=== PATIENT | male | born 1935 ===

== ENCOUNTER 2024-11-10 16:26 | Inpatient (IN) | payer MEDICARE ==
[~2024-11-10] VITALS: Ht 185.4 cm; Wt 66.5 kg
[2024-11-11] VITALS (34 sets, daily range): BP systolic 119–153; BP diastolic 37–92; PULSE 77–95; RESP 12–32; O2SAT 85–96
[2024-11-11 00:26] LABS: ABG BASE EXCESS -3.4 mmol/L (-2.0-3.0); ABG HCO3 20.1 mmol/L (21.0-28.0); ABG OXYGEN SATURATION 85.0 % (94.0-98.0); ABG PCO2 (T) 30.3 mmHg (35.0-48.0); ABG PH (T) 7.437 (7.350-7.450); ABG PO2 (T) 50.1 mmHg (83.0-108.0); ALLEN'S TEST Modified; FCOHb 0.3 % (0.5-1.5); FHHb 14.9 % (0.0-5.0); FIO2 100.0 mmHg/%; FLOW 30 L/min; FMetHb 0.3 % (0.0-1.5); FO2Hb 84.5 % (94.0-98.0); MODE HIGH FLOW; PATIENT TEMPERATURE 36.2; TOTAL HEMOGLOBIN 11.0 G/dl (13.5-17.5)
--- NOTE | 2024-11-11 01:08 | CONSULTATION REPORT ---
Consult Providers to CC CC: NAYAN REYES MD 89 M who was transferred from [facility]. He has a Right Lung white out and is here for CT surgery to do a VATS for him History of Present Illness Reason for Admit\Complaint: Right Chest White Out on Xray History of Present Illness 89 yr old man we saw in the ICU at [facility]. He was moved here from [facility]. He is in Respiratory Failure Requiring HFNC 35-40L 100%. He is not in a ;lot of respiratory distress but he is emaciated. He is said to have initially been admitted to the [facility] on the 09 of November While there he had a CTA that showed findings suggestive of empyema and right pleural effusion He had a high D Dimer and an 11mm nodule found as well. He did develop new onset Afib there as well and was treated with Diltiazem. He had an echocardiogram and this showed a preserved Ejection Fraction up to 75% He eventually went into Sinus rhythm and Diltiazem was discontinued. He is presently on antibiotics with Meropenem - he also received azithro and rocephin I spoke with the poatient myself via the video system and he said he felt OK and was not in any pain. Not had a BM as constipated for about 5 days. He has a long hx of smoking 1.5ppd for >70 years. He tells me he has been healthy and not been in the hospital since his teenage years. At the time I saw him his HR was 88 sinus rythm, BP was 149/77mmHg, O2 sat was 88-90%. He was coughing as well. Allergies: Coded Allergies: Penicillins (Verified Allergy, Unknown, 11/11/24) Past Medical History Past Medical History Laboratory Tests Test Completed Orders - NAYAN REYES MD Electrocardiogram (11/11/24 08:00) * Rt Notification Q1H (11/11/24 01:18) Cbc/Diff (11/11/24 03:00) CMP (11/11/24 03:00) MG (11/11/24 03:00) PHOS (11/11/24 03:00) Pt Inr (11/11/24 01:06) PTT (11/11/24 01:06) Procalcitonin (11/11/24 01:06) Electrocardiogram (11/11/24 01:06) Chest,Single View (11/11/24 01:06) TSH (11/11/24 01:06) LA (11/11/24 01:06) Type And Screen (11/11/24 01:06) Perflutren Protein-A Microsphr (Optison (11/11/24 01:10) * Rt Notification Q1H (11/11/24 01:06) * Rt Notification Q1H (11/11/24 01:57) Vancomycin*Pharmacy To Dose* (Vancomycin (11/11/24 02:00) Meropenem 1gm/Nacl 50ml Ivpb (Meropenem- (11/11/24 03:00) Vancomycin 1,500mg Inj. (Vancomycin 1,50 (11/11/24 03:05) Ua W/Microscopic, Cult If Ind (11/11/24 05:15) Aspirin 325mg Tablet (Aspirin 325mg Tabl (11/11/24 07:34) 11/11/24 00:22 11/11/24 04:33 11/11/24 05:15 11/11/24 07:47 Blood Gas Specimen Type Arterial Blood Gas Puncture Site Rr O2 Saturation 85.0 % (94.0-98.0) Arterial Blood pH (Temp corrected) 7.437 (7.350-7.450) Arterial Blood pCO2 (Temp correct) 30.3 mmHg (35.0-48.0) Arterial Blood pO2 (Temp corrected) 50.1 mmHg (83.0-108.0) Arterial Blood PO2/FiO2 Ratio 0.53 mmHg/% Arterial Blood HCO3 20.1 mmol/L (21.0-28.0) Arterial Blood Base Excess -3.4 mmol/L (-2.0-3.0) Arterial Blood Oxyhemoglobin 84.5 % (94.0-98.0) Arterial Blood Carboxyhemoglobin 0.3 % (0.5-1.5) Arterial Blood Methemoglobin 0.3 % (0.0-1.5) Arterial Blood Deoxyhemoglobin 14.9 % (0.0-5.0) Shane Test Modified Blood Gas Hemoglobin 11.0 G/dl (13.5-17.5) Blood Gas Temperature 36.2 Blood Gas Liter Flow 30 L/min Blood Gas Modality High flow FiO2 100.0 mmHg/% Blood Gas Critical Value Called To Beto rn White Blood Count 19.9 X10'3 (4.5-11.0) Red Blood Count 3.77 X10'6 (4.70-6.10) Hemoglobin 10.8 g/dl (14.0-17.9) Hematocrit 34.0 % (42.0-52.0) Mean Corpuscular Volume 90.4 FL (78-98) Mean Corpuscular Hemoglobin 28.7 PG (27.0-31.0) Mean Corpuscular Hemoglobin Concent 31.7 g/dL (33.0-36.5) Red Cell Distribution Width 17.4 % (11.5-14.5) Platelet Count 245 X10'3 (140-440) Mean Platelet Volume 8.1 FL (7.4-10.4) Neutrophils (%) (Auto) 91.0 % (42-75) Lymphocytes (%) (Auto) 1.4 % (21-51) Monocytes (%) (Auto) 7.1 % (2-12) Eosinophils (%) (Auto) 0 % (0-6) Basophils (%) (Auto) 0.5 % (0-1) Neutrophils # (Auto) 18.1 X10'3 (1.8-7.7) Lymphocytes # (Auto) 0.3 X10'3 (1.1-4.8) Monocytes # (Auto) 1.4 X10'3 (0-0.9) Eosinophils # (Auto) 0.0 X10'3 (0-0.9) Basophils # (Auto) 0.1 X10'3 (0-0.2) CBC Comment Prothrombin Time 11.4 SECONDS (9.0-12.0) INR International Normalized Ratio 1.1 INR Activated Partial Thromboplast Time 40 SECONDS (22-32) Coagulation Comments Sodium Level 141 MMOL/L (135-145) Potassium Level 4.1 MMOL/L (3.5-5.1) Chloride Level 105 MMOL/L (99-107) Carbon Dioxide Level 24.3 MMOL/L (24-32) Anion Gap 12 (8-16) Blood Urea Nitrogen 27 MG/DL (7-18) Creatinine 0.45 MG/DL (0.60-1.10) Estimated GFR/1.73 m2 > 90 ML/MIN BUN/Creatinine Ratio 60.0 (10.0-20.0) Glucose Level 84 MG/DL (70-104) Lactic Acid Level 0.8 MMOL/L (0.4-2.0) Calcium Level 8.7 MG/DL (8.5-10.1) Phosphorus Level 2.6 MG/DL (2.3-4.5) Magnesium Level 2.2 MG/DL (1.5-2.4) Total Bilirubin 0.5 MG/DL (0.1-1.0) Aspartate Amino Transf (AST/SGOT) 25 U/L (10-37) Alanine Aminotransferase (ALT/SGPT) 26 U/L (12-78) Alkaline Phosphatase 66 IU/L (46-116) Total Protein 5.9 G/DL (6.4-8.2) Albumin 2.0 G/DL (3.4-5.0) Globulin 3.9 G/DL (2.7-4.3) Albumin/Globulin Ratio 0.5 (1.1-1.5) Procalcitonin 1.69 NG/ML (0-0.5) Thyroid Stimulating Hormone (TSH) 0.62 ulU/ml (0.34-4.50) Chemistry Comments Urine Specimen Description Non-specified Urine Color Dark yellow (Yellow) Urine Clarity Clear (Clear) Urine pH 6.0 (4.8-8.0) Urine Specific Marissa 1.025 (1.001-1.035) Urine Protein Trace mg/dl (Neg) Urine Glucose (UA) Negative mg/dl (Neg) Urine Ketones >=80 mg/dl (Neg) Urine Occult Blood Small (Neg) Urine Nitrite Negative (Neg) Urine Bilirubin Small (Neg) Urine Urobilinogen 0.2 E.U/dL (0.2-1.0) Urine Leukocyte Esterase Negative (Neg) Urine RBC 0-2 /HPF (0-2) Urine WBC 5-10 /HPF (0-4) Urine WBC Clumps Few /HPF (NEGATIVE) Urine Squamous Epithelial Cells None seen /LPF (FEW) Urine Bacteria Few /HPF (Neg) Urine Mucus Few /LPF (Neg) Urine Culture Indicated Indicated Volume Urine Centrifuged 10 ml Urine Comment Glucometer 91 mg/dl (70-104) Exam Vitals: Vital Signs Date Time Temp Pulse Resp B/P (MAP) Pulse Ox O2 Delivery O2 Flow Rate FiO2 11/11/24 00:41 97.2 84 25 147/81 (103) 92 High Flow Nasal Cannula 40.0 100 Diagnostic Data Diagnostic Data: Patient: UBALDO LEÓN Medical Record: [id number] [facility] : 1935, Age: 89 Sex: Male Location: [facility] 2S Patient Status: ADM IN Service Date/Time: 11/11/246 Ordering Physician: NAYAN REYES MD Exam: CHEST,SINGLE VIEW CHEST RADIOGRAPH Indication: respiratory failure Technique: Single frontal view of the chest was obtained COMPARISON: XR CHEST 1 VIEW on DOS: 11/09/24 FINDINGS: Diffuse opacification of the right hemithorax presumably related to a large pleural fusion with associated atelectatic changes. No mediastinal shift. Left lung is clear cardiac silhouette is within normal limits. IMPRESSION: 1. Diffuse opacification of the right lung presumably related to an enlarging pleural effusion and progressive atelectasis. Electronically Signed by:GARIMA ROBERTS MD Date & Time: 11/11/24157 Dictated by: GARIMA ROBERTS MD Dictation date and time: 11/11/24157 Primary Care Provider: NO PRIMARY CARE PROVIDER cc: NAYAN REYES MD ~ Additional Plan 89 yr old man with a hx of smoking who is in Acute Respiratory Failure - this is from the Empyema/Pleural Effusion in the right chest May also have underlying COPD given history of smoking Developed Afib bit now in sinus rhythm I have reviewed EKG and it showed a right bundle branch block - widened QRS Non sustained Vtach also being reported Plan - Continue HFNC ---titrate for pt comfort and for goal sats >90% - Continue Meropenem and Vancomycin and broad spectrum antimicrobial in the setting of possible empyema - ASA 325 given and Cardiology consulted given arrhythmias and hx of Afib in the outside hospital. I have spoken to Dr Devendra Triplett - We will continue to monitor vital signs and metal status at this time - Monitor in the ICU - Discussed case with CT surgery Date of Service: Nov 11, 2024 Billing Provider: NAYAN REYES MD Common Visit Codes: 74806-EMQEJROC CARE 30-74 MIN NAYAN REYES MD Nov 11, 2024 01:08
[2024-11-11] MEDS ORDERED: magnesium sulf-water 4G/100mL 100 ML IV PRN ×2 (01:10)
[2024-11-11] MEDS ORDERED: ondansetron/PF 4mg/2ml inj IV PRN (01:10)
[2024-11-11] MEDS: PERFLUTREN PROTEIN-A MICROSPHR (Optison) 0.22 MG/ML 3ML VIAL IV ONE (01:10)
[2024-11-11] MEDS ORDERED: potassium Cl 40MEQ/1/2NS 520ml 520 ML IV PRN (01:10)
[2024-11-11] MEDS ORDERED: potassium Cl 20 mEq SR tablet PO PRN ×2 (01:10)
[2024-11-11] MEDS ORDERED: ipratropium/albuterol 3ml nebule NEB PRN ×2 (01:10→02:00)
[2024-11-11] MEDS ORDERED: magnesium sulf-water 2g/50mL 50 ML IV PRN ×2 (01:10)
[2024-11-11] MEDS ORDERED: guaiFENesin 200 MG/10 ML oral syrup UD cup PO PRN (02:00)
--- NOTE | 2024-11-11 02:00 | RADIOLOGY REPORT ---
CHEST RADIOGRAPH Indication: respiratory failure Technique: Single frontal view of the chest was obtained COMPARISON: XR CHEST 1 VIEW on DOS: 11/09/24 FINDINGS: Diffuse opacification of the right hemithorax presumably related to a large pleural fusion with associated atelectatic changes. No mediastinal shift. Left lung is clear cardiac silhouette is within normal limits. IMPRESSION: 1. Diffuse opacification of the right lung presumably related to an enlarging pleural effusion and progressive atelectasis.
[2024-11-11] MEDS: MEROPENEM 1GM/NACL 50ML IVPB 50 ML IV ONE (03:00)
[2024-11-11] MEDS: VANCOMYCIN 1,500MG in normal saline IV soln 300 ML IV ONE (03:05)
--- NOTE | 2024-11-11 03:49 | ELECTROCARDIOGRAPH REPORT ---
[facility] Test Date: 2024-11-11 Test Time: 03:48:28 Pat Name: UBALDO LEÓN Department: [facility] 2S Patient ID: [facility]-[id number] Room: [facility] 2007 A Gender: M Home [employer] Specialist: : 1935 Requested By: NAYAN REYES Order Number: [id number] Reading MD: Dr. LIDNA Deleon Measurements Intervals [place] Rate: 90 P: 55 [place]: 159 QRS: -71 QRSD: 144 T: 69 QT: 411 QTc: 503 Interpretive Statements Sinus rhythm Ventricular premature complex Left atrial enlargement RBBB and LAFB Electronically Signed On 11-11-2024 12:04:[address] LINDA Deleon Please click the below link to view image of tracing.
[2024-11-11 05:42] LABS: APTT 40 SECONDS (22-32); INR 1.1 INR
[2024-11-11 05:59] LABS: LEUKOCYTE ESTERASE ,URINE NEGATIVE (Neg); NITRITES, URINE NEGATIVE (Neg); OCCULT BLOOD,URINE SMALL (Neg)
[2024-11-11 06:00] LABS: UA COLLECTION TYPE NON-SPECIFIED
[2024-11-11 06:00] LABS: MEAN PLATELET VOLUME 8.1 FL (7.4-10.4); RED CELL DISTRIBUTION WIDTH 17.4 % (11.5-14.5)
[2024-11-11 06:03] LABS: CREATININE 0.45 MG/DL (0.60-1.10); PHOSPHORUS 2.6 MG/DL (2.3-4.5); TOTAL CARBON DIOXIDE 24.3 MMOL/L (24-32); eCRCL 103 ML/MIN; eGFR > 90 ML/MIN
[2024-11-11 06:19] LABS: MUCUS STRANDS FEW /LPF (Neg); SQUAMOUS EPITHELIAL CELL,UR NONE SEEN /LPF (FEW); WBC CLUMPS,URINE FEW /HPF (NEGATIVE)
--- NOTE | 2024-11-11 07:04 | ELECTROCARDIOGRAPH REPORT ---
[facility] Test Date: 2024-11-11 Test Time: 07:02:48 Pat Name: UBALDO LEÓN Department: [facility] 2S Patient ID: [facility]-[id number] Room: [facility] 2007 A Gender: M Phys Ther: : 1935 Requested By: NAYAN REYES Order Number: [id number] Reading MD: Dr. LINDA Deleon Measurements Intervals [place] Rate: 89 P: 59 [place]: 156 QRS: -74 QRSD: 168 T: 71 QT: 411 QTc: 501 Interpretive Statements Sinus rhythm Multiple ventricular premature complexes Probable left atrial enlargement RBBB and LAFB Electronically Signed On 11-11-2024 12:04:[address] LIDNA Deleon Please click the below link to view image of tracing.
[2024-11-11] MEDS: docusate sod 100mg capsule PO SCH (07:54)
[2024-11-11] MEDS: diltiazem SR 60mg capsule (twice daily) PO SCH (07:54)
[2024-11-11] MEDS: enoxaparin 40mg/0.4ml syringe SUBCUT SCH (07:55)
[2024-11-11] MEDS: VANCOMYCIN/WATER FOR INJ (PEG) 1.5GM/300 ML IVPB IV ONE (07:55)
[2024-11-11] MEDS: nicotine 21mg patch - 24 hr TD SCH (08:00)
[2024-11-11] MEDS: K and/or MAG REPLACEMENT MC SCH (08:00)
[2024-11-11] MEDS: MEROPENEM 1GM/NACL 50ML IVPB 50 ML IV SCH (08:25)
[2024-11-11 09:28] LABS: PHOSPHORUS 2.5 MG/DL (2.3-4.5)
[2024-11-11] MEDS ORDERED: OXYC1TAB15 PO (10:47)
[2024-11-11] MEDS ORDERED: FURO20TA4 PO (10:47)
[2024-11-11] MEDS ORDERED: POT (10:47)
[2024-11-11] MEDS: LIDOcaine 1%/PF 5ML 10 MG/ML VIAL SQ STA ×2 (12:19→12:20)
[2024-11-11] MEDS: morphine 4 MG/ML inj SYRINge IV PRN ×2 (12:20→15:46)
--- NOTE | 2024-11-11 12:26 | CONSULTATION REPORT ---
Cardiac Consultation Report Providers to CC CC: SHERYL CHAUHAN MD ~ Progress Note: 89yo man with HTN, LE Edema, Afib, Rt pleural effusion transferred from [facility] for concerns of Empyema. Pt reports a few days of increased SOB and right sided chest pains, admitted to [place], found to have whiteout of his right lung and Afib, transferred here. Subjective Subjective After chest tube, reports SOB improved, CP resolved. Objective Vitals Vital Signs Date Time Temp Pulse Resp B/P (MAP) Pulse Ox O2 Delivery O2 Flow Rate FiO2 11/11/24 10:37 79 20 93 Non-Rebreather 16 N/A 11/11/24 06:00 140/81 (100) 11/11/24 05:00 97.3 Lab Results: 11/11/24 0433 11/11/24 0851 Objective GENERAL: Awake, alert, ++On non-rebreather CV: Reg rhythm, normal rate. ++II/ SM RUSB LUNGS: ++Absent Rt sided breath sounds. ++Rt sided chest tube in place GI: +BS, soft, non-tender EXT: 2+ radial pulses. 1+ pitting edema b/l LE to knees PSYCH: cooperative Coagulation Studies Laboratory Tests Test 11/11/24 04:33 Prothrombin Time 11.4 SECONDS (9.0-12.0) INR International Normalized Ratio 1.1 INR Activated Partial Thromboplast Time 40 SECONDS (22-32) H Coagulation Comments Problem\Assessment\Plan Problems/Diagnosis: (1) Atrial fibrillation Assessment & Plan: New onset per pt. CV of 3. Pending Echo --Cont rate control with Dilt 60mg BID for now --Can start OAC post intervention of right lung whiteout. Problem Qualifiers (1) Atrial fibrillation: Qualified Codes: I48.0 - Paroxysmal atrial fibrillation MARSHA CHAUHAN MD Nov 11, 2024 12:26
--- NOTE | 2024-11-11 12:38 | RADIOLOGY REPORT ---
CHEST RADIOGRAPH Indication: Chest tube insertion Technique: DI CHEST,SINGLE VIEW Comparison: 11/11/2024 FINDINGS: The cardiac silhouette is silhouetted on the right. The lungs demonstrate near complete opacification of the right hemithorax, slightly decreased from prior. Right chest pigtail catheter projecting over the right lung base, new in the interval. The pulmonary vasculature is prominent. Patchy left lung airspace opacities. Large right pleural effusion. There is no pneumothorax. IMPRESSION: As above
[2024-11-11 12:41] LABS: ABG BASE EXCESS -5.0 mmol/L (-2.0-3.0); ABG HCO3 18.3 mmol/L (21.0-28.0); ABG OXYGEN SATURATION 88.5 % (94.0-98.0); ABG PCO2 (T) 28.3 mmHg (35.0-48.0); ABG PH (T) 7.428 (7.350-7.450); ABG PO2 (T) 58.4 mmHg (83.0-108.0); ALLEN'S TEST Yes; FCOHb 0.4 % (0.5-1.5); FHHb 11.4 % (0.0-5.0); FIO2 100.0 mmHg/%; FLOW 40 L/min; FMetHb 0.3 % (0.0-1.5); FO2Hb 87.9 % (94.0-98.0); MODE HIGH FLOW; PATIENT TEMPERATURE 37.0; TOTAL HEMOGLOBIN 10.7 G/dl (13.5-17.5)
--- NOTE | 2024-11-11 12:49 | PROGRESS NOTE ---
Subjective Subjective Patient is seen today. Lying in bed awake alert and conversant and in no distress but hypoxic with a pulse oximeter reading of around 88-91% on 100% FiO2 and an oxygen flow rate of 65 mL per minute. Reason for visit: Pulmonary critical care consultation Reviewed: Care Plan, H&P, Labs, Radiology Review of Systems Changes from previous H/P or p: No Changes Daily Progress Note Exam Vitals Vital Signs Date Time Temp Pulse Resp B/P (MAP) Pulse Ox O2 Delivery O2 Flow Rate FiO2 11/11/24 12:20 20 11/11/24 10:37 79 93 Non-Rebreather 16 N/A 11/11/24 06:00 140/81 (100) 11/11/24 05:00 97.3 Result Diagram: 11/11/24 0433 11/11/24 0851 Exam General: Frail looking with sunken temples HEENT examination: Non-rebreather mask on, N/C/AT, PERRLA, EOMI Neck: Supple with no jugular venous distention no lymphadenopathy. Chest: Symmetric expansion bilaterally Pulmonary: Diminished breath sounds right side with diminished vocal fremitus. Abdomen: Soft nontender Extremities: Nondistended with normoactive bowel sounds soft nontender no organomegaly. Results Coagulation Studies Laboratory Tests Test 11/11/24 04:33 Prothrombin Time 11.4 SECONDS (9.0-12.0) INR International Normalized Ratio 1.1 INR Activated Partial Thromboplast Time 40 SECONDS (22-32) H Coagulation Comments VTE VTE Risk Score VTE Risk Score Reference Ranges: Score 0-1 = Low Risk (Aggressive mobilization; early ambulation; no VTE prophylaxis required) Score 2: Moderate Risk (Intermittent/Pneumatic Compression Device OR Lovenox/Heparin/Coumadin) Score 3-4: High Risk (Intermittent/Pneumatic Compression Device AND Lovenox/Heparin/Coumadin) Score > or = 5: Highest Risk (Intermittent/Pneumatic Compression Device AND Lovenox/Heparin/Coumadin) Assessment/Plan Plan Acute respiratory failure: Severely hypoxic most likely due to nonfunctioning right lung and possibly COPD. Pulse oximeter reading is 93-94% wishes a slight improvement. Suspected right chest empyema caused by community-acquired pneumonia: Patient is status post right chest tube thoracostomy and the patient's PH is less than 6.670 highly suggestive of empyema. Also an LDH of 1089 easily is suggestive of empyema. Rest of pleural fluid analysis is still pending. Community-acquired pneumonia Atrial fibrillation COPD Nicotine addiction. Malnutrition Plan: Continue vancomycin and meropenem. Dornase and tPA injections at a dose of 10 mg and 15 mg respectively b.i.d. Continue high-flow oxygen to maintain an oxygen saturation level of at least 88%. Continue bronchodilator therapy with DuoNebs q.4 hours. May require decortication via VATS if attempts with the tPA/dornase unsuccessful to resolve he has right pleural effusion. Code status: DNR Sedation and analgesia: Currently on morphine 4 mg IV q.4 hours p.r.n. Nutrition: Encourage p.o. diet Prophylaxis: Lovenox 40 mg subcutaneously q.day Overall prognosis: Guarded Critical care time in excess of 35 minutes. MAT FAROOQ MD Nov 11, 2024 12:49
[2024-11-11] MEDS: LIDOcaine 1% 30ml preserv. free vial TOP SCH (13:19)
[2024-11-11] MEDS: dornase alfa 2.5mg/2.5mL 10 MG in normal saline 50ml IV soln 20 ML IPL SCH (13:19)
[2024-11-11] MEDS: tPA-cathflo 2mg/2ml IV flush 15 MG in normal saline 50ml IV soln 15 ML IPL SCH (13:20)
[2024-11-11 13:50] LABS: LDH,BODY FLUID 1089 U/L; TOTAL PROTEIN,BODY FLUID 4.1 G/DL
[2024-11-11 14:11] LABS: GLUCOSE,BODY FLUID 0 MG/DL
[2024-11-11 14:35] LABS: LYMPHOCYTES,BODY FLUID 3 %; NEUTROPHILS,BODY FLUID 97 %
[2024-11-11 14:36] LABS: BF RBC COUNT 450 /CU MM; BF WBC COUNT 5400 /CU MM (0-1000); BFAPPEAR CLOUDY; BFCOLOR YELLOW; BFSOURCE RIGHT PLEURAL FLD; BFVOLUME 70 ML
[2024-11-11 14:38] LABS: MONOCYTES,BODY FLUID 0 %
--- NOTE | 2024-11-11 17:41 | PROGRESS NOTE ---
Progress Note ID Providers to CC ~ Progress Note Progress Note: pt seen and examined-ct reviewed-findings consistent with empyema-ct placed per Dr. Montalvo-will await response to tpa SPENSER PONCE MD Nov 11, 2024 17:41
[2024-11-11] MEDS: lactose-reduced food (Ensure Enlive) - 237ml bottle PO SCH (18:00)
--- NOTE | 2024-11-11 18:40 | CARDIOLOGY REPORT ---
APPROVED REPORT EXAM: Limited 2D, Doppler, and color-flow Echocardiogram. 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 Velocity 363 cm/s RAP ESTIMATE 10 mmHg TR Peak Gr. 53 mmHg RVSP 63 mmHg LEFT VENTRICLE Normal LV size and wall thickness. Overall systolic function is hyperdynamic. LVEF is 70-75%. RIGHT VENTRICLE RV appears normal in size and function. Elevated right heart pressure with an RVSP of 63 mmHg. ATRIA The left atrium size appears normal. AORTIC VALVE Trileaflet AV appears ?sclerotic without ovbious stenosis or insufficiency. No diagnostic Doppler evaluation due to poor imaging windows. TDS MITRAL VALVE MV annular calcification without obvious stenosis. Trace regurgitation. No diagnostic Doppler evaluation due to poor imaging windows. TDS TRICUSPID VALVE TV appears structurally normal with mild regurgitation. PULMONIC VALVE Normal PV without stenosis, physiologic insufficiency. GREAT VESSELS The aortic root is normal in size. IVC is normal in size and collapses less than 50% with inspiration. PERICARDIUM Normal pericardium. No effusion. Other Information Study Quality: Technically Limited due to no apical window. Conclusion Normal LV size and wall thickness. Overall systolic function is hyperdynamic. LVEF is 70-75%. RV appears normal in size and function. Elevated right heart pressures with an RVSP of 63 mmHg. The left atrium size appears normal. Trileaflet AV appears sclerotic without ovbious stenosis or insufficiency. No diagnostic Doppler evaluation due to poor imaging windows. TDS MV annular calcification without obvious stenosis. Trace regurgitation. No diagnostic Doppler evaluation due to poor imaging windows. TDS TV appears structurally normal with mild regurgitation. Normal pericardium. No effusion.
[2024-11-11] MEDS: VANCOMYCIN LEVEL IV ONE (18:58)
[2024-11-11] MEDS: vancomycin/NS 1 GM ADD-VANTAGE 250 ML IV SCH (19:57)
[2024-11-11] MEDS: magnesium hydroxide 30ml (MOM) UD suspension PO PRN (19:57)
[2024-11-11] MEDS ORDERED: tPA-cathflo 2mg/2ml IV flush 15 MG in normal saline 50ml IV soln 15 ML IPL SCH (20:00)
[2024-11-11] MEDS: LIDOCAINE 1% w/preservative (10 MG/ML) inj. 10mL VIAL IJ SCH (20:08)
--- NOTE | 2024-11-11 22:15 | HISTORY AND PHYSICAL ---
ADMIT DATE: 11/11/2024 DICTATING PHYSICIAN: Darwin Gonzáles MD CHIEF COMPLAINT: Shortness of breath. HISTORY: The patient is an 89-year-old male without any past medical history developed chest discomfort. He was sent to [facility]. The patient was seen in the ER and found to have a large right-sided effusion and elevated white count. The patient developed a rapid ventricular response, was started on Cardizem. Transfer was subsequently initiated at [facility] for further evaluation and treatment. On further questioning, the patient complains of significant shortness of breath, some right-sided chest discomfort. Denies a productive cough. He denies hemoptysis. He does have a long history of tobacco use. He denies any cardiac history. No complaints of significant weight loss. No complaints of malignancies. PAST MEDICAL HISTORY: Essentially unremarkable. PAST SURGICAL HISTORY: Significant for previous hernia repair. HOME MEDICATIONS: None. ALLERGIES: PENICILLIN. SOCIAL HISTORY: Long history of tobacco use. REVIEW OF SYSTEMS: Unremarkable as mentioned above. PHYSICAL EXAMINATION: GENERAL: Well-nourished, thin male, in mild distress. VITAL SIGNS: Pulse 82, blood pressure 146/69, respiratory rate is 22. HEENT: Unremarkable. HEART: Regular rate and rhythm. LUNGS: Diminished breath sounds. THORAX: ____ hemothorax. ABDOMEN: Some mild right inguinal tenderness. Well-healed groin scar. EXTREMITIES: Unremarkable. NEUROLOGIC: Nonfocal. LABORATORY DATA: WBC of 19, hematocrit 34, platelet count is 245. Chemistries include BUN and creatinine of 27 and 0.49, CO2 is 24. IMAGING: CT chest from an outside facility reveals a large right-sided pleural effusion. No obvious mediastinal shift. Pleural studies are pending. IMPRESSION: 1. Probable right-sided empyema. 2. History of atrial fibrillation with rapid ventricular response, now in sinus rhythm. PLAN: 1. Chest tube placement per Dr. Montalvo. 2. Initiation of TPA. 3. Will likely need decortication if lung fails to re-expand in response to TPA. Darwin Gonzáles MD TID: [id number] RECEIPT: [id number] /[facility]
--- NOTE | 2024-11-11 22:41 | PROCEDURE NOTE- [place]ance ---
Procedure Note Providers to CC CC: MAT FAROOQ MD ~ Planned Procedure Right pigtail catheter placement Indications Right empyema Supervisor Intermediates Dr. Farooq performed the procedure and I assisted him Type of Anesthesia Local Informed Consent Consent was obtained from the patient prior to the procedure. Indications, risks like pain, bleeding, infection, organ injury, pneumothorax, hemothorax, and benefits were explained at length. Description I am writing this note for Dr. Farooq. Following dictation by Dr. Farooq, A time out was performed and after the chest x-ray was reviewed, the appropriate side was confirmed and marked. My hands were washed immediately prior to the procedure. I wore a surgical cap, mask with protective eyewear, sterile gown and sterile gloves throughout the procedure. The patient was prepped and draped in a sterile manner using chlorhexidine scrub after the patient was positioned in the usual fashion. A total of 10 ml of 1% lidocaine was used to anesthesize the skin, subcutaneous tissue, superior aspect of the rib periosteum and parietal pleura. A 2 cm incision was then made parallel to the rib in the midaxillary line at the level of the 5th rib. Pleural fluid was drained. A dilator was inserted and then a guide wire was inserted. Dilator was removed with the guidewire in place. A 12 Turkmen pigtail catheter was then inserted along the guidewire and then the guidewire was removed.. The chest tube was directed upward and inserted easily. The chest tube was sutured to the skin at the insertion site, and connected securely with tape to a pleurovac. A sterile occlusive dressing was placed over the insertion site. No immediate complications were noted. A post-procedure chest x-ray showed Right chest pigtail catheter projecting over the right lung base and no pneumothorax. Estimated blood loss is minimal Estimated Blood Loss Minimal Complication None X-Ray Findings A post-procedure chest x-ray showed Right chest pigtail catheter projecting over the right lung base and no pneumothorax Date of Service: Nov 11, 2024 Billing Provider: MAT FAROOQ MD [facility] Nov 11, 2024 22:41
[2024-11-12] VITALS (32 sets, daily range): BP systolic 105–143; BP diastolic 42–82; PULSE 76–93; RESP 13–44; O2SAT 91–97
--- NOTE | 2024-11-12 03:06 | PROCEDURE NOTE- [place]ance ---
Procedure Note Providers to CC CC: ABRAM CORNELL, RES ~ Description Procedure: Intrapleural administration of tPA and DNase via chest tube Indication: Complicated parapneumonic empyema with loculations not adequately drained by chest tube alone. Description: The existing chest tube was confirmed to be in appropriate position. After sterile preparation of the injection port, tissue plasminogen activator (tPA) [dose,10 mg in 30 mL NS] was instilled intrapleurally via the chest tube, followed by dornase adis [dose, 5 mg in 30 mL NS]. The chest tube was then clamped for [dwell time, 2 hours] to allow distribution of medications within the pleural space. After the dwell period, the chest tube was unclamped and reconnected to suction. The patient tolerated the procedure well without immediate complications. Findings: Chest tube remained patent with appropriate drainage. Plan: Continue intrapleural fibrinolytic therapy per protocol (usually twice daily for up to 3 days), monitor chest tube output, vital signs, and clinical status. Patient assessed, case discussed with resident . I agree with the assessment and plan above with no changes. Maryam Adames MD Critical Care Date of Service: Nov 12, 2024 Billing Provider: MARYAM ADAMES MD, GAURAV, RES Nov 12, 2024 03:05 MARYAM ADAMES MD Nov 15, 2024 16:46
[2024-11-12] MEDS ORDERED: iohexol 300mg/ml 100ml inj. ONE (04:25)
--- NOTE | 2024-11-12 05:42 | RADIOLOGY REPORT ---
Procedure: CT CT CHEST W/ IV CONTRAST 11/12/2024 05:05 AM History: trapped lung Comparison: CTA PE CHEST W/ IV CONTRAST on DOS: 11/09/24, XR CHEST 1 VIEW on DOS: 11/09/24 Technique: After the uneventful administration of contrast intravenously, CT imaging was performed through the chest. Coronal and sagittal reformations were performed by the technologist. Radiation Dose : CT Dose: CTDI volume is 11.3 mGy. Dose-length product is 492.4 mGy*cm Findings: Lower neck: Normal thyroid. Lungs: Bilateral lower lobe airspace disease, left greater than right. No focal consolidation. Heart/Vascular Structures: Cardiomegaly. Coronary artery calcifications. Vascular calcifications of the aorta. 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 No pericardial effusion. Lymph Nodes: No adenopathy. Pleura: Moderate multiloculated right pleural effusion. Trace left pleural effusion. Musculoskeletal: No acute osseous abnormality. Soft tissues: Normal. Upper abdomen: Limited portions of the upper abdomen are unremarkable. IMPRESSION: Bilateral lower lobe airspace disease, left greater than right. Moderate multiloculated right pleural effusion. Trace left pleural effusion. Cardiomegaly. 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
[2024-11-12 05:45] LABS: MEAN PLATELET VOLUME 8.5 FL (7.4-10.4); RED CELL DISTRIBUTION WIDTH 17.1 % (11.5-14.5)
[2024-11-12 06:10] LABS: CREATININE 0.41 MG/DL (0.60-1.10); PHOSPHORUS 1.4 MG/DL (2.3-4.5); TOTAL CARBON DIOXIDE 26.3 MMOL/L (24-32); eCRCL 113 ML/MIN; eGFR > 90 ML/MIN
[2024-11-12] MEDS ORDERED: sodium phos 15mmol/D5 255mL 255 ML IV PRN (07:20)
[2024-11-12] MEDS: sodium phosphate inj. 30 MMOL in dextrose 5%-water 250 ML IV PRN (08:53)
[2024-11-12] MEDS: pantoprazole 40mg Tablet.DR PO SCH (11:37)
--- NOTE | 2024-11-12 13:11 | PROGRESS NOTE ---
Subjective Subjective Patient is seen today. Lying in bed awake alert and conversant and in no distress but hypoxic, though improved. Pulse oximeter reading is 94-97% on 80% high-flow oxygen. He has drained at least 2 L of pleural fluid that was initially straw-colored but now serosanguineous. Reason for visit: Pulmonary critical care consultation Reviewed: Care Plan, H&P, Labs, Radiology Daily Progress Note Exam Vitals Vital Signs Date Time Temp Pulse Resp B/P (MAP) Pulse Ox O2 Delivery O2 Flow Rate FiO2 11/12/24 12:13 13 11/12/24 12:00 86 115/69 (84) 95 High Flow Nasal Cannula 35.0 80 11/12/24 11:00 98.2 Result Diagram: 11/12/2442111/12/24421 Exam General: Frail looking with sunken temples and absent fat pads in the supraclavicular areas HEENT examination: Non-rebreather mask on, N/C/AT, PERRLA, EOMI Neck: Supple with no jugular venous distention no lymphadenopathy. Chest: Symmetric expansion bilaterally Pulmonary: Diminished breath sounds right side with diminished vocal fremitus. Abdomen: Soft nontender Extremities: Nondistended with normoactive bowel sounds soft nontender no organomegaly. Results Coagulation Studies Laboratory Tests Test 11/11/24 04:33 Prothrombin Time 11.4 SECONDS (9.0-12.0) INR International Normalized Ratio 1.1 INR Activated Partial Thromboplast Time 40 SECONDS (22-32) H Coagulation Comments VTE VTE Risk Score VTE Risk Score Reference Ranges: Score 0-1 = Low Risk (Aggressive mobilization; early ambulation; no VTE prophylaxis required) Score 2: Moderate Risk (Intermittent/Pneumatic Compression Device OR Lovenox/Heparin/Coumadin) Score 3-4: High Risk (Intermittent/Pneumatic Compression Device AND Lovenox/Heparin/Coumadin) Score > or = 5: Highest Risk (Intermittent/Pneumatic Compression Device AND Lovenox/Heparin/Coumadin) Assessment/Plan Plan Acute respiratory failure: Severely hypoxemic, but improved compared to yesterday. most likely due to nonfunctioning right lung caused by atelectasis/consolidation and possibly COPD. Pulse oximeter reading is 94-97% on 80% FiO2 on high-flow nasal cannula at 40 L/min. Suspected right chest empyema caused by community-acquired pneumonia: Patient is status post right chest tube thoracostomy and the patient's PH is less than 6.670 highly suggestive of empyema. Also an LDH of 1089 easily is suggestive of empyema. Rest of pleural fluid analysis is still pending. Receiving treatment with 15 mg of tPA and 10 mg of dornase via chest tube. Community-acquired pneumonia Atrial fibrillation COPD Nicotine addiction. Malnutrition Plan: Continue vancomycin and meropenem. Dornase and tPA injections at a dose of 10 mg and 15 mg respectively b.i.d for three days. Continue high-flow oxygen to maintain an oxygen saturation level of at least 88%. Continue bronchodilator therapy with DuoNebs q.4 hours. May require decortication via VATS if attempts with the tPA/dornase unsuccessful to resolve he has right pleural effusion. Code status: DNR Sedation and analgesia: Currently on morphine 4 mg IV q.4 hours p.r.n. Nutrition: Encourage p.o. diet Prophylaxis: Lovenox 40 mg subcutaneously q.day Overall prognosis: Guarded Critical care time in excess of 35 minutes. Expected Outcome/Goals Expected Outcomes/Goals: no further wt loss/weight gain, meet at least 75% of estimated nutrient needs, ONS acceptance, bowel regularity, optimaml skin integrity MAT FAROOQ MD Nov 12, 2024 13:11
--- NOTE | 2024-11-12 13:58 | CONSULTATION REPORT ---
Consult Providers to CC ~ History of Present Illness Reason for Admit\Complaint: Sepsis, pneumonia, empyema History of Present Illness Nik Farley is a 89-year-old male with no significant reported past medical history who was transferred from [facility] due to large right-sided effusion and atrial fibrillation w/ RVR. Patient was started on Cardizem drip at OSH and was transferred to [facility]. Patient underwent chest tube placement and receiving tPA as a initial management. Allergies: Coded Allergies: Penicillins (Verified Allergy, Unknown, 11/11/24) Home Medications Home Medications Active Reported Oxycodone-Acetaminophn 7.5-325 (Oxycodone HCl/Acetaminophen) 7.5 Mg-325 Mg Tablet 1 Tab PO QID PRN Furosemide 20 Mg Tablet 1 Tab PO DAILY Past Medical History Past Medical History Nicotine dependence Past Surgical History Surgical History Comment Hernia repair Family History Family History: Patient reports no known family medical history. Past Social History Social History Comment Long-term tobacco abuse ROS ROS Other than positives in HPI, all 14 review of systems are negative Exam Vitals: Vital Signs Date Time Temp Pulse Resp B/P (MAP) Pulse Ox O2 Delivery O2 Flow Rate FiO2 11/12/24 13:13 19 11/12/24 13:00 98.2 88 127/73 (91) 91 High Flow Nasal Cannula 35.0 80 General: Generalized weakness, awake and alert, NAD HEENT: Normocephalic, PERRLA Neck: Supple, trachea midline, no JVD Chest: Diminished right lung sounds, right chest tube in place Cardiovascular: RRR, S1&S2 Abdomen: Soft and nontender Extremities: No cyanosis/clubbing/or edema Central Nervous System: No focal deficits Musculoskeletal: No paraspinal muscle tenderness, no muscle spasm Skin: Right chest tube Diagnostic Data Last Recorded Lab Results: 11/12/24 0422 11/12/24 0422 Diagnostic Data: Laboratory Tests Test 11/11/24 04:33 Prothrombin Time 11.4 SECONDS (9.0-12.0) INR International Normalized Ratio 1.1 INR Activated Partial Thromboplast Time 40 SECONDS (22-32) H Coagulation Comments Additional Plan Nik Farley is a 89-year-old male with no significant past medical history who was transferred from [facility] due to a large right-sided effusion and atrial fibrillation w/ RVR. Patient was started on Cardizem drip at OSH and was transferred to [facility]. Patient underwent chest tube placement and receiving tPA as a initial management. Assessment & Plan Community-acquired pneumonia Empyema Sepsis 2/2 above Acute respiratory failure 2/2 above Atrial fibrillation, RVR COPD Nicotine dependence Malnutrition, severe -on 35L HF NC, right empyema s/p right chest tube, pleural fluid culture pending, receiving treatment with 15 mg of tPA and 10 mg of dornase via chest tube -continue vancomycin and meropenem, dornase and tPA injections 10 mg and 15 mg respectively b.i.d x 3 days, supplemental oxygen, now sinus and rate controlled on po diltiazem Code status: DNR Date of Service: Nov 12, 2024 Billing Provider: LAZARA SAENZ Common Visit Codes: [id number] INP/OBS CARE (HIGH) LAZARA SAENZ Nov 12, 2024 13:58
[2024-11-12] MEDS: VANCOMYCIN LEVEL IV ONE (18:30)
[2024-11-12] MEDS: polyethylene glycol 3350 17gm powd pack PO PRN (19:54)
--- NOTE | 2024-11-12 20:34 | PROGRESS NOTE ---
Progress Note ID Providers to CC ~ Progress Note Progress Note: sob imroving/vss/ct output noted/ct reviewed/pleural fluid consistent with exudate/cultures pending a/p 1. loculated right effusion-response to sloop captain noted/cont tpa-repeat ct in am SPENSER PONCE MD Nov 12, 2024 20:34
[2024-11-13] VITALS (34 sets, daily range): BP systolic 98–129; BP diastolic 49–82; PULSE 75–93; RESP 14–42; O2SAT 84–98
[2024-11-13] MEDS: bisacodyl 10mg suppository rectal RC PRN (04:24)
[2024-11-13 04:34] LABS: MEAN PLATELET VOLUME 8.3 FL (7.4-10.4); RED CELL DISTRIBUTION WIDTH 17.4 % (11.5-14.5)
[2024-11-13 05:05] LABS: CREATININE 0.34 MG/DL (0.60-1.10); PHOSPHORUS 1.8 MG/DL (2.3-4.5); TOTAL CARBON DIOXIDE 30.9 MMOL/L (24-32); eCRCL 147 ML/MIN; eGFR > 90 ML/MIN
--- NOTE | 2024-11-13 06:59 | RADIOLOGY REPORT ---
CHEST RADIOGRAPH Indication: chest tube Technique: Single frontal view of the chest was obtained COMPARISON: CT CT CHEST W/ IV CONTRAST on DOS: 11/12/24, DI CHEST,SINGLE VIEW on DOS: 11/11/24, DI CHEST,SINGLE VIEW on DOS: 11/11/24, XR CHEST 1 VIEW on DOS: 11/09/24 FINDINGS: Lines and Tubes: Right lung base chest tube stable in position. Lungs: Interval decrease in partially loculated right pleural effusion. The left lung is clear. No pneumothorax. Cardiomediastinal contours: Unremarkable Bones: Unremarkable IMPRESSION: 1. Interval decrease in partially loculated right pleural effusion. 2. Right lung base small bore chest tube.
--- NOTE | 2024-11-13 12:31 | PROGRESS NOTE ---
Subjective Subjective Patient is seen today. Lying in bed awake alert and conversant and in no distress but hypoxic, though improved. Pulse oximeter reading is 94-97% on 80% high-flow oxygen. He has drained at least 2 L of pleural fluid that was initially straw-colored but now serosanguineous. Reason for visit: Pulmonary critical care consultation Reviewed: Care Plan, H&P, Labs, Radiology Review of Systems Changes from previous H/P or p: No Changes Daily Progress Note Exam Vitals Vital Signs Date Time Temp Pulse Resp B/P (MAP) Pulse Ox O2 Delivery O2 Flow Rate FiO2 11/13/24 11:38 93 16 92 20.0 60 11/13/24 11:00 122/56 (78) High Flow Nasal Cannula 11/13/24 10:00 98.2 Result Diagram: 11/13/24 0359 11/13/24 0359 Exam General: Frail looking with sunken temples and absent fat pads in the supraclavicular areas HEENT examination: Non-rebreather mask on, N/C/AT, PERRLA, EOMI Neck: Supple with no jugular venous distention no lymphadenopathy. Chest: Symmetric expansion bilaterally Pulmonary: Diminished breath sounds right side with diminished vocal fremitus. Abdomen: Soft nontender Extremities: Nondistended with normoactive bowel sounds soft nontender no organomegaly. Results Coagulation Studies Laboratory Tests Test 11/11/24 04:33 Prothrombin Time 11.4 SECONDS (9.0-12.0) INR International Normalized Ratio 1.1 INR Activated Partial Thromboplast Time 40 SECONDS (22-32) H Coagulation Comments VTE VTE Risk Score VTE Risk Score Reference Ranges: Score 0-1 = Low Risk (Aggressive mobilization; early ambulation; no VTE prophylaxis required) Score 2: Moderate Risk (Intermittent/Pneumatic Compression Device OR Lovenox/Heparin/Coumadin) Score 3-4: High Risk (Intermittent/Pneumatic Compression Device AND Lovenox/Heparin/Coumadin) Score > or = 5: Highest Risk (Intermittent/Pneumatic Compression Device AND Lovenox/Heparin/Coumadin) Assessment/Plan Plan Acute respiratory failure:Severely hypoxemic, but with further improvement compared to yesterday i.e. FiO2 down from 80% to 60% on high-flow nasal cannula oxygen. most likely due to nonfunctioning right lung caused by atelectasis/consolidation and possibly COPD. Pulse oximeter reading is 93-97% on 60% FiO2 on high-flow nasal cannula at 40 L/min. Suspected right chest empyema caused by community-acquired pneumonia: PH less than 6.76 and glucose of 0 on pleural fluid analysis highly suggestive of empyema. Patient is status post right chest tube thoracostomy and the patient's PH is less than 6.670 highly suggestive of empyema. Also an LDH of 1089 easily is suggestive of empyema. Rest of pleural fluid analysis suggestive of complicated pleural effusion. Cell cytology still pending. Receiving treatment with 15 mg of tPA and 10 mg of dornase via chest tube. Trapped lung ? Patient's right lung is now back up at least 80% . Patient not a candidate for chemotherapy and radiation therapy if diagnosed with lung cancer. Patient and his family do not want surgery. I 2nd this motion because this is a frail looking patient who is malnourished and probably high-risk candidate for surgery with no clear benefit of the proposed surgery of right lung decortication. I have made this very clear to the consulting thoracic surgeon that the patient and his family do not want surgery and that the surgery is of questionable benefit if any at all. Making a diagnosis of lung cancer without any consequences of treatment options does not make sense. He may benefit from a PleurX catheter if he continues to have significant daily pleural fluid fluid drainage. Community-acquired pneumonia Atrial fibrillation COPD Nicotine addiction. Malnutrition Plan: Continue vancomycin and meropenem. Dornase and tPA injections at a dose of 10 mg and 15 mg respectively b.i.d for three days. He is left with two treatments today. His CAT scan of the chest can be done after all treatments with tPA are completed. I however think that that CAT scan of the chest is of no benefit as it would tell us what we already suspect. Continue high-flow oxygen to maintain an oxygen saturation level of at least 88%. Continue bronchodilator therapy with DuoNebs q.4 hours. Patient and family do not want to have surgery. Surgery is of questionable benefit in this patient since the diagnosis of lung cancer we will not lead to any treatment options given his physical status. His right lung is already 80% up with the current conservative treatment with tPA and dornase. Code status: DNR Sedation and analgesia: Currently on morphine 4 mg IV q.4 hours p.r.n. Nutrition: Encourage p.o. diet Prophylaxis: Lovenox 40 mg subcutaneously q.day Overall prognosis: Guarded Critical care time in excess of 35 minutes. Expected Outcome/Goals Expected Outcomes/Goals: no further wt loss/weight gain, meet at least 75% of estimated nutrient needs, ONS acceptance, bowel regularity, optimaml skin integrity MAT FAROOQ MD Nov 13, 2024 12:31
[2024-11-13] MEDS: lactose-reduced food (Ensure Enlive) - 237ml bottle PO SCH (13:00)
--- NOTE | 2024-11-13 18:48 | PROGRESS NOTE ---
Daily Progress Note Providers to CC ~ feels better today, pain well controlled, chest tube functional Central Line/PICC still needed: No Kiser-Non Protocol Kiser Indications Met/Not Met: F/C Indications Not Met Antibiotic Timeout Antibiotic Ordered?: Yes MRSA Education MRSA Education Provided to pt: Yes Subjective As above Objective Vital Signs Date Time Temp Pulse Resp B/P (MAP) Pulse Ox O2 Delivery O2 Flow Rate FiO2 11/13/24 18:45 90 20 93 20.0 50 11/13/24 18:00 121/68 (85) High Flow Nasal Cannula 11/13/24 17:00 98.8 Vital signs, stable ,afebrile. Pulse Oximetry reflects adequate oxygenation, on high-flow oxygen FiO2 50% General: well developed, well nourished. Awake , alert, and oriented x4, resting comfortably in the bed, in no acute distress . Skin: Warm, dry, no pallor, no rash or petechiae. HEENT: Atraumatic, normocephalic, EOMI, anicteric sclera B; pink conjunctiva; PERRLA, normal oropharynx, moist oral and nasal mucosa. Tympanic membrane , nose , throat clear. Neck: Trachea midline. Supple, full range of motion, no JVD, bruit , hepatojugular reflex , lymphadenopathy or masses, or other lesions Cardiac: Regular rhythm, regular rate no murmurs, rubs, or gallops. Normal S1 and S2, no S3 noticed. PMI is normal. Respiratory: Equal breath sounds bilaterally, no tachypnea; lungs clear to auscultation bilaterally, no wheezing ,rub or rales, or crackles. Chest wall is symmetric and without deformity. No signs of trauma. Chest wall is nontender. No signs of respiratory distress. Resonance is normal upon percussion bilaterally. Chest tube functional Gastrointestinal: Abdomen symmetric, non-distended, soft, non-tender, normal bowel sounds x4 quadrant, normoactive, no hepatosplenomegaly , no masses , no bruit, no flank pain bilaterally. No voluntary guarding, rebound, or rigidity. No tenderness to percussion. No pulsatile masses. Equal femoral pulses. No Sood's sign or McBurney point tenderness. Back; no CVA tenderness bilaterally, no deformities. Neck and back are without deformity as well. No tenderness noted on palpation of the spinous processes. Spinous processes are midline. Cervical, thoracic, and lumbar paraspinal muscles are not tender and are without spasm. : normal external genitalia, without lesions, swelling, masses or tenderness. Musculoskeletal: Extremities, normal range of motion, non-tender, muscle strength 5/5 x 4. Negative Homans signs bilaterally on lower extremity. Distal pulses full symmetrical, no clubbing, cyanosis , edema. Neurological: Speech is clear, alert, and oriented x 4. No motor or sensory deficit, deep tendon reflexes normal, cerebellar intact. Cranial nerves II-XII intact. Psych: Alert and or appropriate, normal affect. Vascular: Good distal pulses, which are equal x4; capillary refill less than 2 seconds. Lymphatic, no lymphadenopathy. Result Diagram: 11/13/24 0359 11/13/24 0359 Coagulation Studies Laboratory Tests Test 11/11/24 04:33 Prothrombin Time 11.4 SECONDS (9.0-12.0) INR International Normalized Ratio 1.1 INR Activated Partial Thromboplast Time 40 SECONDS (22-32) H Coagulation Comments Problem\Assessment\Plan Assessment/ Plan Nik Farley is a 89-year-old male with no significant past medical history who was transferred from [facility] due to a large right-sided effusion and atrial fibrillation w/ RVR. Patient was started on Cardizem drip at OSH and was transferred to [facility]. Patient underwent chest tube placement and receiving tPA as a initial management. Assessment & Plan Community-acquired pneumonia Empyema Sepsis 2/2 above Acute respiratory failure 2/2 above Atrial fibrillation, RVR COPD Nicotine dependence Malnutrition, severe FiO2 50%, HF NC, right empyema s/p right chest tube, pleural fluid culture pending, receiving treatment with 15 mg of tPA and 10 mg of dornase via chest tube -continue vancomycin and meropenem, dornase and tPA injections 10 mg and 15 mg respectively b.i.d x 3 days, supplemental oxygen, now sinus and rate controlled on po diltiazem Code status: DNR Sepsis Screening Reassessment Date: Nov 13, 2024 Date of Service: Nov 13, 2024 Billing Provider: ASHLEY JANE MD Common Visit Codes: [id number] INP/OBS CARE(HIGH) ASHLEY JANE MD Nov 13, 2024 18:48
[2024-11-13] MEDS ORDERED: VANCOmycin 1250MG/NS 250ml Bag 250 ML IV SCH (19:00)
--- NOTE | 2024-11-13 19:37 | PROGRESS NOTE ---
Progress Note ID Providers to CC ~ Progress Note Progress Note: sob improving/vss/lung-ct output noted/wbc improving/cxr noted a/p 1. righth empyema-good response to tpa/ct chest to be done in am SPENSER PONCE MD Nov 13, 2024 19:37
[2024-11-13] MEDS: CefTRIAXone 2gm/D5W 50ml BAG 50 ML IV SCH (20:02)
[2024-11-14] VITALS (31 sets, daily range): BP systolic 105–139; BP diastolic 58–92; PULSE 75–93; RESP 11–29; TEMP 97.9–98.5; O2SAT 90–98
[2024-11-14 02:53] LABS: MEAN PLATELET VOLUME 8.6 FL (7.4-10.4); RED CELL DISTRIBUTION WIDTH 17.2 % (11.5-14.5)
[2024-11-14 03:12] LABS: CREATININE 0.32 MG/DL (0.60-1.10); PHOSPHORUS 2.4 MG/DL (2.3-4.5); TOTAL CARBON DIOXIDE 29.7 MMOL/L (24-32); eCRCL 156 ML/MIN; eGFR > 90 ML/MIN
--- NOTE | 2024-11-14 05:58 | RADIOLOGY REPORT ---
CHEST RADIOGRAPH Indication: chest tube Technique: Single frontal view of the chest was obtained COMPARISON: DI CHEST,SINGLE VIEW on DOS: 11/13/24, DI CHEST,SINGLE VIEW on DOS: 11/11/24, DI CHEST,SINGLE VIEW on DOS: 11/11/24, XR CHEST 1 VIEW on DOS: 11/09/24 FINDINGS: Lines and Tubes: Right basilar chest tube in-situ. Lungs: Pulmonary vascular congestion unchanged. Pleura: Significantly decreased right pleural effusion. Persistent loculated pleural effusion in the right upper thorax. No pneumothorax. Cardiomediastinal contours: Unremarkable Bones: Unremarkable IMPRESSION: Right basilar chest tube in-situ. No pneumothorax. Significantly decreased right pleural effusion. Persistent loculated pleural effusion in the right upper thorax.
--- NOTE | 2024-11-14 08:38 | CONSULTATION ---
DATE OF CONSULTATION: 11/13/2024 DICTATING PHYSICIAN: Arsenio Yu MD REASON FOR CONSULTATION: I am seeing the patient at the request of Dr. Gonzáles for evaluation of a loculated right pleural effusion. HISTORY OF PRESENT ILLNESS: The patient is an 89-year-old male with probable COPD and a very long smoking history who was admitted to [facility] a couple of days prior to being transferred to this hospital. He lives in [place] and states that he developed acute onset right-sided pleuritic chest pain. He suffered with this pain for about a day and had a friend take him to [facility] in [place]. I believe he was at that hospital for a period of time and was then sent here for a higher level of care. I believe the physicians at [place] had spoken to Dr. Gonzáles. He was found to have complete opacification of the right hemithorax. I believe he was admitted to the ICU overnight by one of the nighttime intensivists this past weekend. He was placed on meropenem and vancomycin. He then had a chest tube placed by Dr. Montalvo. Dr. Gonzáles was consulting at that point. He was receiving TPA and Dornase through the chest tube. It is unclear to me how many treatments he has received at this point. He has had quite a bit of output from his chest tube. Based on the nursing notes, he has had about 2.5 L out. He did have a CT scan done early yesterday morning and another CT scan is planned for tomorrow morning. Two of his 4 children are currently at the bedside. There has been some discussion about surgical treatment and the patient would prefer to avoid that type of treatment if necessary, but he did not seem completely opposed when I spoke with him. He apparently lost his a couple of years ago to lung cancer and he certainly does not want to go through a long period of suffering. That said he is still open to most treatment options. With regard to the tempo of his illness, it seems as if he was performing his usual activities up until his acute onset of right-sided chest pain. At one point, he hinted that he may have slowed down a little bit in the past week or two but he states that he was certainly his normal active self over the summer. He still does quite a bit of work around his place in [place], and he does live alone. PAST MEDICAL HISTORY: He does not report any medical problems at baseline, although he almost certainly has COPD along with nicotine dependence. PAST SURGICAL HISTORY: Hernia repair. ALLERGIES: PATIENT IS ALLERGIC TO PENICILLIN. MEDICATIONS: 1. Vancomycin. 2. Meropenem. 3. Pantoprazole. 4. Aspirin. 5. Lovenox. 6. Nicotine patch. 7. Diltiazem. 8. Colace. FAMILY HISTORY: Noncontributory. SOCIAL HISTORY: He is a . Once again, his a little less than 2 years ago from lung cancer. He lives in [place]. He does have 4 children. He has a long smoking history spanning 70 years. PHYSICAL EXAMINATION: VITAL SIGNS: He is currently afebrile with stable vital signs, although he is on 50% FiO2 via high flow nasal cannula. GENERAL: He is a very pleasant elderly male sitting up in bed in no acute distress. He does appear thin and frail, although he was still fairly active. He was coughing quite a bit when I saw him this evening. HEENT: Sclerae anicteric. Mouth is clear. NECK: Supple without adenopathy. LUNGS: Revealed decreased breath sounds at the right side with a right-sided chest tube in place. He does have some bloody fluid in the pleural vac. Left side is clear. HEART: Regular rate and rhythm. ABDOMEN: Soft without significant distention. EXTREMITIES: With mild edema. LABORATORY DATA: White blood cell count is 12,800, down from nearly 20,000, hemoglobin 9.5, platelets 219,000, creatinine 0.34. Albumin is markedly low at 1.4. Procalcitonin was 1.7. Pleural fluid showed a white blood cell count of 5400 with 97% neutrophils. He only had 450 red blood cells. LDH was markedly elevated at 1089 and protein was 4.1. Glucose was 0 and pH could not be performed as the specimen was apparently too old. Gram stain did not reveal any organisms. Culture is pending. Blood cultures are negative. MRSA screen is negative. Imaging studies have been reviewed. Echocardiogram does show evidence of pulmonary hypertension, although the right ventricle is still functioning normally. Chest x-ray initially showed complete opacification of the right hemithorax. Chest x-ray this morning demonstrates improved aeration of the right lung, although he still has opacified areas superolaterally and inferiorly. He had a CT scan yesterday morning that was reviewed. He demonstrates a multiloculated right pleural effusion. He still has fairly large pockets situated superolaterally with extension to the anterior chest. He has another pocket that seems to involve the major fissure and he still has quite a bit of fluid at the base, more at the anterior aspect. He has a chest tube in place posteriorly at the base. He does have evidence of lower lobe pneumonia bilaterally. IMPRESSION: * Multiloculated right pleural effusion that appears to be an exudative process. I would suspect a parapneumonic effusion. He certainly has a neutrophil predominance with a glucose of 0 that suggests possible empyema, but no organisms were seen on Gram stain and culture is currently pending. * Bilateral lower lobe pneumonia. * Acute respiratory failure with improving oxygen requirement. 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 * Suspected malnutrition with hypoalbuminemia. PLAN: His antibiotic therapy will be optimized. The big question for him is how to best achieve drainage given his current status and wishes. He currently has one chest tube in place and a repeat CT scan is pending for tomorrow morning. We will see if he has made any further gains compared to his CT scan from yesterday morning. I suspect he is still going to have some areas of loculated fluid. At that point we may need to decide whether additional percutaneous drainage could take place with the help of Interventional Radiology or whether VATS would be indicated. He certainly understands that the choice is his to make and if he wants to try to survive this illness, then he likely will need some additional procedure/operation if we hope to get his lung further re-expanded with improved oxygen requirements. Regarding the question of lung cancer, he is certainly at risk, but I do not think there is convincing evidence right now. We still need to wait for pleural fluid cytology and he did not have any adenopathy identified on CT imaging. Meropenem and vancomycin will be discontinued. He does not have evidence of MRSA, and meropenem is likely more than he needs right now. He would be better served with ceftriaxone and clindamycin as this is more likely to be a streptococcal infection. Gram-negatives are possible, but likely not needing meropenem, and he will maintain some anaerobic coverage. As mentioned above repeat CT chest is pending for tomorrow morning. I will plan to review this and discuss with his other treating physicians. If he does not want to go forward with any surgical treatment, it may be reasonable to talk with IR to see if additional percutaneous drainage is a possibility. I am not sure when IR would be available at this facility again, but we could reach out to IR at [facility]. I will continue to follow the patient closely and I thank you for allowing me to participate in his care. Arsenio Yu MD TID: [id number] RECEIPT: [id number] CHUN/RYANN MTDStephon
--- NOTE | 2024-11-14 12:22 | PROGRESS NOTE ---
Subjective Subjective Patient is seen today. Lying in bed awake alert and conversant and in no distress but hypoxic, with overall improvement of oxygenation and CAT scan of the chest findings. Reason for visit: Pulmonary critical care consultation Reviewed: Care Plan, H&P, Labs, Radiology System Changes Review of systems Acute respiratory failure:Severely hypoxemic, with further improvement compared to yesterday high-flow oxygen down from 40 L/min to 15 L/min. Pulse oximeter readings ranged from 90-97%.Most likely due to atelectasis/consolidation and possibly COPD exacerbation. Pulse oximeter reading is 90-97% on 15LO2 per minute. Suspected right chest empyema caused by community-acquired pneumonia: PH less than 6.76 and glucose of 0 on pleural fluid analysis highly suggestive of empyema. Patient is status post right chest tube thoracostomy and the patient's PH is less than 6.670 highly suggestive of empyema. Also an LDH of 1089 easily is suggestive of empyema. Rest of pleural fluid analysis suggestive of complicated pleural effusion. Cell cytology still pending. Completed chest tube treatment with 15 mg of tPA and 10 mg of dornase via chest tube on 11/13/2024. Trapped lung ? Cat scan today reveals resounding improvement with the recently foregone treatments of tPA and dornase. Patient's right lung is now back up at least 95% . He continues to have significant pleural fluid drainage. Patient not a candidate for chemotherapy and radiation therapy if diagnosed with lung cancer. Patient and his family do not want surgery. I support this decision because this is a frail looking patient who is malnourished and probably high-risk candidate for surgery with no clear benefit of the proposed surgery of right lung decortication. I have made this very clear to the consulting thoracic surgeon that the patient and his family do not want surgery and that the surgery is of questionable benefit if any at all. Making a diagnosis of lung cancer without any consequences of treatment options does not make sense. He may benefit from a PleurX catheter if he continues to have significant daily pleural fluid fluid drainage. Community-acquired pneumonia Atrial fibrillation COPD Nicotine addiction. Malnutrition Plan: Continue clindamycin and ceftriaxone. Continue high-flow oxygen to maintain an oxygen saturation level of at least 88%. Continue bronchodilator therapy with DuoNebs q.4 hours. Patient and family do not want to have surgery. Surgery is of questionable benefit in this patient since the diagnosis of lung cancer we will not lead to any treatment options given his physical status. His right lung is already 95% up with the current conservative treatment with tPA and dornase. Code status: DNR Sedation and analgesia: Currently on morphine 4 mg IV q.4 hours p.r.n. Nutrition: Encourage p.o. diet Prophylaxis: Lovenox 40 mg subcutaneously q.day Overall prognosis: Guarded Critical care time in excess of 35 minutes. Daily Progress Note Exam Vitals Vital Signs Date Time Temp Pulse Resp B/P (MAP) Pulse Ox O2 Delivery O2 Flow Rate FiO2 11/14/24 12:00 85 11 110/58 (75) 91 11/14/24 11:00 High Flow Nasal Cannula 8.0 11/14/24 09:00 98.1 11/14/24 07:30 N/A Result Diagram: 11/14/2421711/14/24217 Exam General: Frail looking with sunken temples and absent fat pads in the supraclavicular areas HEENT examination: Non-rebreather mask on, N/C/AT, PERRLA, EOMI Neck: Supple with no jugular venous distention no lymphadenopathy. Chest: Symmetric expansion bilaterally Pulmonary: Diminished breath sounds right side with diminished vocal fremitus. Abdomen: Soft nontender Extremities: Nondistended with normoactive bowel sounds soft nontender no organomegaly. Results Coagulation Studies Laboratory Tests Test 11/11/24 04:33 Prothrombin Time 11.4 SECONDS (9.0-12.0) INR International Normalized Ratio 1.1 INR Activated Partial Thromboplast Time 40 SECONDS (22-32) H Coagulation Comments VTE VTE Risk Score VTE Risk Score Reference Ranges: Score 0-1 = Low Risk (Aggressive mobilization; early ambulation; no VTE prophylaxis required) Score 2: Moderate Risk (Intermittent/Pneumatic Compression Device OR Lovenox/Heparin/Coumadin) Score 3-4: High Risk (Intermittent/Pneumatic Compression Device AND Lovenox/Heparin/Coumadin) Score > or = 5: Highest Risk (Intermittent/Pneumatic Compression Device AND Lovenox/Heparin/Coumadin) Assessment/Plan Plan Acute respiratory failure:Severely hypoxemic, but with further improvement compared to yesterday i.e. FiO2 down from 80% to 60% on high-flow nasal cannula oxygen. most likely due to nonfunctioning right lung caused by atelectasis/consolidation and possibly COPD. Pulse oximeter reading is 93-97% on 60% FiO2 on high-flow nasal cannula at 40 L/min. Suspected right chest empyema caused by community-acquired pneumonia: PH less than 6.76 and glucose of 0 on pleural fluid analysis highly suggestive of empyema. Patient is status post right chest tube thoracostomy and the patient's PH is less than 6.670 highly suggestive of empyema. Also an LDH of 1089 easily is suggestive of empyema. Rest of pleural fluid analysis suggestive of complicated pleural effusion. Cell cytology still pending. Receiving treatment with 15 mg of tPA and 10 mg of dornase via chest tube. Trapped lung ? Patient's right lung is now back up at least 80% . Patient not a candidate for chemotherapy and radiation therapy if diagnosed with lung cancer. Patient and his family do not want surgery. I 2nd this motion because this is a frail looking patient who is malnourished and probably high-risk candidate for surgery with no clear benefit of the proposed surgery of right lung decortication. I have made this very clear to the consulting thoracic surgeon that the patient and his family do not want surgery and that the surgery is of questionable benefit if any at all. Making a diagnosis of lung cancer without any consequences of treatment options does not make sense. He may benefit from a PleurX catheter if he continues to have significant daily pleural fluid fluid drainage. Community-acquired pneumonia Atrial fibrillation COPD Nicotine addiction. Malnutrition Plan: Continue vancomycin and meropenem. Dornase and tPA injections at a dose of 10 mg and 15 mg respectively b.i.d for three days. He is left with two treatments today. His CAT scan of the chest can be done after all treatments with tPA are completed. I however think that that CAT scan of the chest is of no benefit as it would tell us what we already suspect. Continue high-flow oxygen to maintain an oxygen saturation level of at least 88%. Continue bronchodilator therapy with DuoNebs q.4 hours. Patient and family do not want to have surgery. Surgery is of questionable benefit in this patient since the diagnosis of lung cancer we will not lead to any treatment options given his physical status. His right lung is already 80% up with the current conservative treatment with tPA and dornase. Code status: DNR Sedation and analgesia: Currently on morphine 4 mg IV q.4 hours p.r.n. Nutrition: Encourage p.o. diet Prophylaxis: Lovenox 40 mg subcutaneously q.day Overall prognosis: Guarded Critical care time in excess of 35 minutes. Expected Outcome/Goals Expected Outcomes/Goals: weight gain/no further wt loss, meet at least 75% of estimated nutrient needs, ONS acceptance, bowel regularity, wound healing MAT FAROOQ MD Nov 14, 2024 12:22
--- NOTE | 2024-11-14 12:51 | RADIOLOGY REPORT ---
EXAM: CT CT CHEST INDICATION: Assess Pleural effussion/ CT assessment TECHNIQUE: Noncontrast axial images of the chest have been obtained along with coronal and sagittal reformatted images. All CT scans at this facility use dose modulation, iterative reconstruction, and/or weight based dosing when appropriate to reduce radiation dose to as low as reasonably achievable. COMPARISON: CT CT CHEST W/ IV CONTRAST on DOS: 11/12/24 FINDINGS: LOWER NECK: Unremarkable LYMPH NODES/MEDIASTINUM: No abnormal lymph nodes by CT size criteria CARDIOVASCULAR: Normal cardiac size. Trace pericardial fluid. No aneurysmal dilatation of the great vessels. Coronary artery calcifications. UPPER ABDOMEN: Unremarkable. MUSCULOSKELETAL: No acute fracture or aggressive focal osseous lesion. Multilevel degenerative change of the visualized spine. CHEST WALL: Unremarkable. LUNG PARENCHYMA/PLEURAL SPACE: Small bilateral pleural effusions. Presumed right-sided loculated effusion. Bibasilar peribronchial thickening and areas of endobronchial impaction correlate for consolidation particularly in the right lung base and right middle lobe. Near-complete opacification of the right mainstem bronchus. Overall Low lung volumes, which cause crowding of the bronchovascular markings. volumes. Status post right-sided pigtail pleural drainage catheter with interval decrease and pleural effusion when compared to prior examination. IMPRESSION: 1. Interval improvement with decreased right-sided loculated pleural effusion however persistent areas of loculation particularly in the right upper hemithorax. 2. Bibasilar consolidation with near-complete endobronchial impaction of the right mainstem bronchus. Finding is new since prior examination correlate for interval aspiration related pneumonia/pneumonitis.
--- NOTE | 2024-11-14 16:39 | PROGRESS NOTE ---
Daily Progress Note Providers to CC No new complaint today resting comfortably in the bed ~ Central Line/PICC still needed: No Kiser-Non Protocol Kiser Indications Met/Not Met: F/C Indications Not Met Antibiotic Timeout Antibiotic Ordered?: Yes MRSA Education MRSA Education Provided to pt: Yes Subjective As above Objective Vital Signs Date Time Temp Pulse Resp B/P (MAP) Pulse Ox O2 Delivery O2 Flow Rate FiO2 11/14/24 16:00 89 25 116/60 (78) 96 High Flow Nasal Cannula 6.0 11/14/24 15:00 98.8 11/14/24 07:30 N/A Vital signs, stable ,afebrile. Pulse Oximetry reflects adequate oxygenation 6 L oxygen nasal cannula General: well developed, well nourished. Awake , alert, and oriented x4, resting comfortably in the bed, in no acute distress . Skin: Warm, dry, no pallor, no rash or petechiae. HEENT: Atraumatic, normocephalic, EOMI, anicteric sclera B; pink conjunctiva; PERRLA, normal oropharynx, moist oral and nasal mucosa. Tympanic membrane , nose , throat clear. Neck: Trachea midline. Supple, full range of motion, no JVD, bruit , hepatojugular reflex , lymphadenopathy or masses, or other lesions Cardiac: Regular rhythm, regular rate no murmurs, rubs, or gallops. Normal S1 and S2, no S3 noticed. PMI is normal. Respiratory: Equal breath sounds bilaterally, no tachypnea; lungs clear to auscultation bilaterally, no wheezing ,rub or rales, or crackles. Chest wall is symmetric and without deformity. No signs of trauma. Chest wall is nontender. No signs of respiratory distress. Resonance is normal upon percussion bilaterally. Right-sided chest tube, sanguinous discharge approximately 1 L of the last 24 in volume Gastrointestinal: Abdomen symmetric, non-distended, soft, non-tender, normal bowel sounds x4 quadrant, normoactive, no hepatosplenomegaly , no masses , no bruit, no flank pain bilaterally. No voluntary guarding, rebound, or rigidity. No tenderness to percussion. No pulsatile masses. Equal femoral pulses. No Sood's sign or McBurney point tenderness. Back; no CVA tenderness bilaterally, no deformities. Neck and back are without deformity as well. No tenderness noted on palpation of the spinous processes. Spinous processes are midline. Cervical, thoracic, and lumbar paraspinal muscles are not tender and are without spasm. : normal external genitalia, without lesions, swelling, masses or tenderness. Musculoskeletal: Extremities, normal range of motion, non-tender, muscle strength 5/5 x 4. Negative Homans signs bilaterally on lower extremity. Distal pulses full symmetrical, no clubbing, cyanosis , edema. Neurological: Speech is clear, alert, and oriented x 4. No motor or sensory deficit, deep tendon reflexes normal, cerebellar intact. Cranial nerves II-XII intact. Psych: Alert and or appropriate, normal affect. Vascular: Good distal pulses, which are equal x4; capillary refill less than 2 seconds. Lymphatic, no lymphadenopathy. Result Diagram: 11/14/2421711/14/24217 Coagulation Studies Laboratory Tests Test 11/11/24 04:33 Prothrombin Time 11.4 SECONDS (9.0-12.0) INR International Normalized Ratio 1.1 INR Activated Partial Thromboplast Time 40 SECONDS (22-32) H Coagulation Comments Problem\Assessment\Plan Assessment/ Plan Nik Farley is a 89-year-old male with no significant past medical history who was transferred from [facility] due to a large right-sided effusion and atrial fibrillation w/ RVR. Patient was started on Cardizem drip at [facility]SH and [facility] Patient underwent chest tube placement and receiving tPA as a initial management. Assessment & Plan Community-acquired pneumonia bilateral pneumonia, Gram-positive Gram-negative mixed jacey Empyema Sepsis 2/2 above Acute respiratory failure 2/2 above Atrial fibrillation, RVR 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 Nicotine dependence Malnutrition, severe FiO2 50%, HF NC, right empyema s/p right chest tube, pleural fluid culture pending, receiving treatment with 15 mg of tPA and 10 mg of dornase via chest tube -continue vancomycin and meropenem, dornase and tPA injections 10 mg and 15 mg respectively b.i.d x 3 days, supplemental oxygen, now sinus and rate controlled on po diltiazem Code status: DNR Sepsis Screening Reassessment Date: Nov 14, 2024 Date of Service: Nov 14, 2024 Billing Provider: ASHLEY JANE MD Common Visit Codes: 05381-[id number] INP/OBS CARE(HIGH) ASHLEY JANE MD Nov 14, 2024 16:39
--- NOTE | 2024-11-14 18:11 | PROGRESS NOTE ---
Progress Note ID Providers to CC ~ Progress Note Progress Note: sob improving/vss/lungs-decreased bs on right/ct reviewed a/p 1. complex exudative right effusion-etiology unclear/long discussion with family about their wishes-they and the patient would like an explanation for the exudative effusion-Dr. Jolly consulted SPENSER PONCE MD Nov 14, 2024 18:11
--- NOTE | 2024-11-14 18:54 | PROGRESS NOTE ---
Progress Note Dictate Providers to CC ~ Subjective Subjective: He seems to be holding steady. Oxygen requirement is improved. Approximately 1 L of pleural fluid removed over prior 24 hours (3L total). Objective Objective: Afebrile with stable vital signs on 8 L GENERAL: Pleasant thin elderly male sitting up in bed in no acute distress. LUNGS: Reveal decreased breath sounds at the right side with a right-sided chest tube in place. He does have some bloody fluid in the pleural vac. Left side is clear. HEART: Regular rate and rhythm. ABDOMEN: Soft without significant distention. EXTREMITIES: With mild edema. Lab Results: 11/14/2421711/14/24217 Lab comments: Pleural fluid culture negative Blood cultures negative Radiology comments: CT chest from this morning 1. Interval improvement with decreased right-sided loculated pleural effusion however persistent areas of loculation particularly in the right upper hemithorax. 2. Bibasilar consolidation with near-complete endobronchial impaction of the right mainstem bronchus. Problem\Assessment\Plan Additional Plan 1. Multiloculated right pleural effusion that appears to be an exudative process. I would suspect a complicated parapneumonic effusion. s/p chest tube drainage with improved CT findings but still some remaining loculated fluid 2. Bilateral lower lobe pneumonia. CT with mucus plugging vs. endobronchial mass 3. Acute respiratory failure with improving oxygen requirement. 4. 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 5. Suspected malnutrition with hypoalbuminemia. Continue ceftriaxone and clindamycin Continue chest tube drainage Bronchoscopy planned for tomorrow Depending on those results, may need to touch base with IR regarding potential drainage of residual collection at right superior lateral location Wean oxygen as tolerated D/W PARTH Armando MD Nov 14, 2024 18:54
[2024-11-15] VITALS (16 sets, daily range): BP systolic 110–128; BP diastolic 56–74; PULSE 50–104; RESP 12–34; TEMP 97.3–98.9; O2SAT 92–98
[2024-11-15] MEDS: mag hydrox/Alum hydrox/simeth 30ml oral suspension PO PRN (05:56)
[2024-11-15] MEDS: VANCOMYCIN LEVEL IV ONE (06:30)
[2024-11-15 06:57] LABS: CREATININE 0.39 MG/DL (0.60-1.10); PHOSPHORUS 2.6 MG/DL (2.3-4.5); TOTAL CARBON DIOXIDE 30.6 MMOL/L (24-32); eCRCL 126 ML/MIN; eGFR > 90 ML/MIN
[2024-11-15 06:59] LABS: MEAN PLATELET VOLUME 8.5 FL (7.4-10.4); RED CELL DISTRIBUTION WIDTH 17.8 % (11.5-14.5)
--- NOTE | 2024-11-15 09:43 | PROGRESS NOTE ---
Progress Note Dictate Providers to CC ~ Subjective Subjective: He is now stable on the floor. Oxygenation slightly better. Another 600ml documented out from CT. Not eating well. Objective Objective: Afebrile with stable vital signs on 6-7 L GENERAL: Pleasant thin elderly male sitting up in bed in no acute distress. LUNGS: Reveal decreased breath sounds at the right side with a right-sided chest tube in place. He does have some bloody fluid in the pleural vac. Left side is clear. HEART: Regular rate and rhythm. ABDOMEN: Soft without significant distention. EXTREMITIES: With mild edema. Lab Results: 11/15/2462611/15/24626 Radiology comments: CXR with improved expansion of right lung Problem\Assessment\Plan Additional Plan 1. Multiloculated right pleural effusion that appears to be an exudative process. I would suspect a complicated parapneumonic effusion. s/p chest tube drainage with improved imaging but still some remaining loculated fluid 2. Bilateral lower lobe pneumonia. CT with mucus plugging vs. endobronchial mass 3. Acute respiratory failure with improving oxygen requirement. 4. 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 5. Suspected malnutrition with hypoalbuminemia. Continue ceftriaxone and clindamycin Continue chest tube drainage Bronchoscopy soon per Dr. Garcia Depending on those results and repeat imaging, may need to touch base with IR regarding potential drainage of residual collections Wean oxygen as tolerated Oral intake encouraged PARTH WALLIS MD Nov 15, 2024 09:43
--- NOTE | 2024-11-15 12:44 | RADIOLOGY REPORT ---
CHEST RADIOGRAPH Indication: chest tube Technique: Single frontal view of the chest was obtained Comparison: CT CT CHEST on DOS: 11/14/24, DI CHEST,SINGLE VIEW on DOS: 11/14/24, DI CHEST,SINGLE VIEW on DOS: 11/13/24, CT CT CHEST W/ IV CONTRAST on DOS: 11/12/24, DI CHEST,SINGLE VIEW on DOS: 11/11/24, DI CHEST,SINGLE VIEW on DOS: 11/14/24 FINDINGS: Lines and Tubes: Right basilar chest tube in-situ. Lungs: Pulmonary vascular congestion unchanged. Pleura: Significantly decreased right pleural effusion. Persistent loculated pleural effusion in the right upper thorax. No pneumothorax. Cardiomediastinal contours: Unremarkable Bones: Unremarkable IMPRESSION: 1. NO interval change.
[2024-11-15] MEDS: ipratropium/albuterol 3ml nebule NEB SCH (14:53)
--- NOTE | 2024-11-15 14:55 | PROGRESS NOTE ---
Progress Note ID Providers to CC ~ Progress Note Progress Note: care transferred to SPENSER Rai MD Nov 15, 2024 14:55
[2024-11-15] MEDS: morphine 4 MG/ML inj SYRINge IV PRN (15:29)
[2024-11-15] MEDS: NUT.TX.IMP.RENAL FXN,LAC-REDUC (Nepro) 237 ML VANILLA PO SCH (17:00)
--- NOTE | 2024-11-15 19:11 | PROGRESS NOTE ---
Subjective Subjective Patient is seen today. Lying in bed awake alert and conversant and in no distress but hypoxic, with overall improvement of oxygenation and CAT scan of the chest findings. Reason for visit: Pulmonary critical care consultation Reviewed: Care Plan, H&P, Labs, Radiology Review of Systems Changes from previous H/P or p: No Changes Daily Progress Note Exam Vitals Vital Signs Date Time Temp Pulse Resp B/P (MAP) Pulse Ox O2 Delivery O2 Flow Rate FiO2 11/15/24 15:29 18 11/15/24 15:04 99 High Flow Nasal Cannula 7.0 11/15/24 15:00 98.6 110/60 (77) 93 11/15/24 14:56 50 Result Diagram: 11/15/2462611/15/24626 Exam General: Frail looking with sunken temples and absent fat pads in the supraclavicular areas HEENT examination: Non-rebreather mask on, N/C/AT, PERRLA, EOMI Neck: Supple with no jugular venous distention no lymphadenopathy. Chest: Symmetric expansion bilaterally Pulmonary: Diminished breath sounds right side with diminished vocal fremitus. Abdomen: Soft nontender Extremities: Nondistended with normoactive bowel sounds soft nontender no organomegaly. Results Coagulation Studies Laboratory Tests Test 11/11/24 04:33 Prothrombin Time 11.4 SECONDS (9.0-12.0) INR International Normalized Ratio 1.1 INR Activated Partial Thromboplast Time 40 SECONDS (22-32) H Coagulation Comments VTE VTE Risk Score VTE Risk Score Reference Ranges: Score 0-1 = Low Risk (Aggressive mobilization; early ambulation; no VTE prophylaxis required) Score 2: Moderate Risk (Intermittent/Pneumatic Compression Device OR Lovenox/Heparin/Coumadin) Score 3-4: High Risk (Intermittent/Pneumatic Compression Device AND Lovenox/Heparin/Coumadin) Score > or = 5: Highest Risk (Intermittent/Pneumatic Compression Device AND Lovenox/Heparin/Coumadin) Assessment/Plan Plan Acute respiratory failure:Severely hypoxemic, but with further improvement compared to yesterday i.e. FiO2 down from 80% to 60% on high-flow nasal cannula oxygen. most likely due to nonfunctioning right lung caused by atelectasis/consolidation and possibly COPD. Pulse oximeter reading is 93-97% on 60% FiO2 on high-flow nasal cannula at 40 L/min. Suspected right chest empyema caused by community-acquired pneumonia: PH less than 6.76 and glucose of 0 on pleural fluid analysis highly suggestive of empyema. Patient is status post right chest tube thoracostomy and the patient's PH is less than 6.670 highly suggestive of empyema. Also an LDH of 1089 easily is suggestive of empyema. Rest of pleural fluid analysis suggestive of complicated pleural effusion. Cell cytology remarkable for malignancy. Completed treatment with 15 mg of tPA and 10 mg of dornase via chest tube. For right loculated pleural effusion and still has a residual right anteroapical loculated pleural effusion. Trapped lung ? : Patient does not have a trapped lung according to serial CAT scans performed on this patient. Patient's right lung is now back up at least 95 % . Patient not a candidate for chemotherapy Saritha radiation therapy if diagnosed with lung cancer. The diagnosis of lung cancer therefore we will be inconsequential. Patient and his family (son and daughter coming out of [facility]) do not want surgery. I talked to patient in the presence of his son and daughter on 11/14/2024. I concur with this decision because this is a frail looking patient who is malnourished and probably high-risk candidate for surgery with no clear benefit of the proposed surgery of right lung decortication. I made this abundantly clear to the consulting thoracic surgeon on various occasions that the patient and his family do not want surgery and that the surgery is of questionable benefit if any at all. Making a diagnosis of lung cancer without any consequences of treatment options does not make sense. He may benefit from a PleurX catheter if he continues to have significant daily pleural fluid fluid drainage. Community-acquired pneumonia: CAT scan done on 11/14/2024 reveals some endobronchial Atrial fibrillation COPD Nicotine addiction. Malnutrition Plan: Continue clindamycin and ceftriaxone. Completed three days of chest tube treatment with Dornase and tPA injections at a dose of 10 mg and 15 mg respectively . He is left with two treatments today. Continue high-flow oxygen to maintain an oxygen saturation level of at least 88%. Continue bronchodilator therapy with DuoNebs q.4 hours. Patient and family do not want to have surgery nor bronchoscopy. Surgery is of questionable benefit in this patient since the diagnosis of lung cancer we will not lead to any treatment options given his physical status. His right lung is already 95 % up with the current conservative treatment with tPA and dornase. Code status: DNR Sedation and analgesia: Currently on morphine 4 mg IV q.4 hours p.r.n. Nutrition: Encourage p.o. diet Prophylaxis: Lovenox 40 mg subcutaneously q.day Overall prognosis: Guarded Critical care time in excess of 35 minutes. Expected Outcome/Goals Expected Outcomes/Goals: weight gain/no further wt loss, meet at least 75% of estimated nutrient needs, ONS acceptance, bowel regularity, wound healing MAT FAROOQ MD Nov 15, 2024 19:11
--- NOTE | 2024-11-15 19:21 | PROGRESS NOTE ---
Daily Progress Note Providers to CC Chief complaint, severe weakness, deconditioning, shortness of breath, cough ~ Central Line/PICC still needed: No Kiser-Non Protocol Kiser Indications Met/Not Met: F/C Indications Not Met Antibiotic Timeout Antibiotic Ordered?: Yes MRSA Education MRSA Education Provided to pt: Yes Subjective As above Objective Vital Signs Date Time Temp Pulse Resp B/P (MAP) Pulse Ox O2 Delivery O2 Flow Rate FiO2 11/15/24 15:29 18 11/15/24 15:04 99 High Flow Nasal Cannula 7.0 11/15/24 15:00 98.6 110/60 (77) 93 11/15/24 14:56 50 Vital signs, stable ,afebrile. Pulse Oximetry reflects adequate oxygenation high-flow nasal cannula FiO2 50% General: Cachectic, ill looking, Awake , alert, and oriented x4, resting comfortably in the bed, in respiratory distress secondary to hypoxia Skin: Warm, dry, no pallor, no rash or petechiae. HEENT: Atraumatic, normocephalic, EOMI, anicteric sclera B; pink conjunctiva; PERRLA, normal oropharynx, moist oral and nasal mucosa. Tympanic membrane , nose , throat clear. Neck: Trachea midline. Supple, full range of motion, no JVD, bruit , hepatojugular reflex , lymphadenopathy or masses, or other lesions Cardiac: Regular rhythm, regular rate no murmurs, rubs, or gallops. Normal S1 and S2, no S3 noticed. PMI is normal. Respiratory: Equal breath sounds bilaterally, no tachypnea; lungs clear to auscultation bilaterally, no wheezing ,rub or rales, or crackles. Chest wall is symmetric and without deformity. No signs of trauma. Chest wall is nontender. No signs of respiratory distress. Resonance is normal upon percussion bilaterally. Chest tube functional, Gastrointestinal: Abdomen symmetric, non-distended, soft, non-tender, normal bowel sounds x4 quadrant, normoactive, no hepatosplenomegaly , no masses , no bruit, no flank pain bilaterally. No voluntary guarding, rebound, or rigidity. No tenderness to percussion. No pulsatile masses. Equal femoral pulses. No Sood's sign or McBurney point tenderness. Back; no CVA tenderness bilaterally, no deformities. Neck and back are without deformity as well. No tenderness noted on palpation of the spinous processes. Spinous processes are midline. Cervical, thoracic, and lumbar paraspinal muscles are not tender and are without spasm. : normal external genitalia, without lesions, swelling, masses or tenderness. Musculoskeletal: Extremities, normal range of motion, non-tender, muscle strength 5/5 x 4. Negative Homans signs bilaterally on lower extremity. Distal pulses full symmetrical, no clubbing, cyanosis , edema. Neurological: Speech is clear, alert, and oriented x 4. No motor or sensory deficit, deep tendon reflexes normal, cerebellar intact. Cranial nerves II-XII intact. Psych: Alert and or appropriate, normal affect. Vascular: Good distal pulses, which are equal x4; capillary refill less than 2 seconds. Lymphatic, no lymphadenopathy. Result Diagram: 11/15/2462611/15/24626 Coagulation Studies Laboratory Tests Test 11/11/24 04:33 Prothrombin Time 11.4 SECONDS (9.0-12.0) INR International Normalized Ratio 1.1 INR Activated Partial Thromboplast Time 40 SECONDS (22-32) H Coagulation Comments Problem\Assessment\Plan Assessment/ Plan Nik Farley is a 89-year-old male with no significant past medical history who was transferred from [facility] due to a large right-sided effusion and atrial fibrillation w/ RVR. Patient was started on Cardizem drip at OSH and was transferred to [facility]. Patient underwent chest tube placement and receiving tPA as a initial management. Assessment & Plan Community-acquired pneumonia bilateral pneumonia, Gram-positive Gram-negative mixed jacey Empyema Sepsis 2/2 above Acute respiratory failure 2/2 above Atrial fibrillation, RVR 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 Nicotine dependence Malnutrition, severe FiO2 50%, HF NC, right empyema s/p right chest tube, pleural fluid culture pending, receiving treatment with 15 mg of tPA and 10 mg of dornase via chest tube -continue vancomycin and meropenem, dornase and tPA injections 10 mg and 15 mg respectively b.i.d x 3 days, supplemental oxygen, now sinus and rate controlled on po diltiazem Code status: DNR Sepsis Screening Reassessment Date: Nov 15, 2024 Date of Service: Nov 15, 2024 Billing Provider: ASHLEY JANE MD Common Visit Codes: [id number] INP/OBS CARE(HIGH) ASHLEY JANE MD Nov 15, 2024 19:21
[2024-11-16] VITALS (19 sets, daily range): BP systolic 104–133; BP diastolic 59–65; PULSE 74–96; RESP 16–24; TEMP 97.3–98.2; O2SAT 93–99
[2024-11-16 06:10] LABS: MEAN PLATELET VOLUME 8.7 FL (7.4-10.4); RED CELL DISTRIBUTION WIDTH 17.4 % (11.5-14.5)
[2024-11-16 06:32] LABS: CREATININE 0.51 MG/DL (0.60-1.10); PHOSPHORUS 3.3 MG/DL (2.3-4.5); TOTAL CARBON DIOXIDE 32.4 MMOL/L (24-32); eCRCL 96 ML/MIN; eGFR > 90 ML/MIN
--- NOTE | 2024-11-16 07:03 | RADIOLOGY REPORT ---
CHEST RADIOGRAPH Indication: chest tube Technique: Single frontal view of the chest was obtained COMPARISON: DI CHEST,SINGLE VIEW on DOS: 11/15/24, CT CT CHEST on DOS: 11/14/24, DI CHEST,SINGLE VIEW on DOS: 11/14/24, DI CHEST,SINGLE VIEW on DOS: 11/13/24, CT CT CHEST W/ IV CONTRAST on DOS: 11/12/24 FINDINGS: Lines and Tubes: Stable right lung base small bore chest tube. Lungs: Stable appearing partially loculated right pleural effusion versus hemopneumothorax. Stable appearing minimal left basilar pulmonary airspace disease and/or pleural effusion and stable moderate right basilar pulmonary airspace disease. Cardiomediastinal contours: Unremarkable Bones: Unremarkable IMPRESSION: 1. Stable appearing partially loculated right pleural effusion versus hemopneumothorax. 2. Stable appearing minimal left basilar pulmonary airspace disease and/or pleural effusion and stable moderate right basilar pulmonary airspace disease. 3. Right lung base chest tube.
[2024-11-16 07:25] LABS: PLATELET ESTIMATE NORMAL
--- NOTE | 2024-11-16 17:58 | PROGRESS NOTE ---
Daily Progress Note Providers to CC ~ no new complaint, resting comfortably in the bed Central Line/PICC still needed: No Kiser-Non Protocol Kiser Indications Met/Not Met: F/C Indications Not Met Antibiotic Timeout Antibiotic Ordered?: Yes Subjective As above Objective Vital Signs Date Time Temp Pulse Resp B/P (MAP) Pulse Ox O2 Delivery O2 Flow Rate FiO2 11/16/24 16:07 74 18 High Flow Salter 6.0 11/16/24 16:00 98 48 11/16/24 15:00 97.3 106/64 (78) Vital signs, stable ,afebrile. Pulse Oximetry reflects adequate oxygenation on 6 L oxygen high-flow nasal cannula General: Cachectic looking ill,. Poorly nourished, Awake , alert, and oriented x4, resting comfortably in the bed, in no acute distress . Skin: Warm, dry, no pallor, no rash or petechiae. HEENT: Atraumatic, normocephalic, EOMI, anicteric sclera B; pink conjunctiva; PERRLA, normal oropharynx, moist oral and nasal mucosa. Tympanic membrane , nose , throat clear. Neck: Trachea midline. Supple, full range of motion, no JVD, bruit , hepatojugular reflex , lymphadenopathy or masses, or other lesions Cardiac: Regular rhythm, regular rate no murmurs, rubs, or gallops. Normal S1 and S2, no S3 noticed. PMI is normal. Respiratory: Equal breath sounds bilaterally, no tachypnea; lungs clear to auscultation bilaterally, no wheezing ,rub or rales, or crackles. Chest wall is symmetric and without deformity. No signs of trauma. Chest wall is nontender. No signs of respiratory distress. Resonance is normal upon percussion bilaterally. Right-sided chest tube functional Gastrointestinal: Abdomen symmetric, non-distended, soft, non-tender, normal bowel sounds x4 quadrant, normoactive, no hepatosplenomegaly , no masses , no bruit, no flank pain bilaterally. No voluntary guarding, rebound, or rigidity. No tenderness to percussion. No pulsatile masses. Equal femoral pulses. No Sood's sign or McBurney point tenderness. Back; no CVA tenderness bilaterally, no deformities. Neck and back are without deformity as well. No tenderness noted on palpation of the spinous processes. Spinous processes are midline. Cervical, thoracic, and lumbar paraspinal muscles are not tender and are without spasm. : normal external genitalia, without lesions, swelling, masses or tenderness. Musculoskeletal: Extremities, normal range of motion, non-tender, muscle strength 5/5 x 4. Negative Homans signs bilaterally on lower extremity. Distal pulses full symmetrical, no clubbing, cyanosis , edema. Neurological: Speech is clear, alert, and oriented x 4. No motor or sensory deficit, deep tendon reflexes normal, cerebellar intact. Cranial nerves II-XII intact. Psych: Alert and or appropriate, normal affect. Vascular: Good distal pulses, which are equal x4; capillary refill less than 2 seconds. Lymphatic, no lymphadenopathy. Result Diagram: 11/16/24 0532 11/16/24 0532 Coagulation Studies Laboratory Tests Test 11/11/24 04:33 Prothrombin Time 11.4 SECONDS (9.0-12.0) INR International Normalized Ratio 1.1 INR Activated Partial Thromboplast Time 40 SECONDS (22-32) H Coagulation Comments Problem\Assessment\Plan Assessment/ Plan Nik Farley is a 89-year-old male with no significant past medical history who was transferred from [facility] due to a large right-sided effusion and atrial fibrillation w/ RVR. Patient was started on Cardizem drip at OSH and was transferred to [facility]. Patient underwent chest tube placement and receiving tPA as a initial management. Assessment & Plan Community-acquired bilateral pneumonia, Gram-positive Gram-negative mixed jacey Empyema Sepsis 2/2 above Acute respiratory failure 2/2 above Atrial fibrillation, RVR 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 Nicotine dependence Malnutrition, severe FiO2 50%, HF NC, right empyema s/p right chest tube, Dr. Gonzáles managing pleural fluid culture pending, receiving treatment with 15 mg of tPA and 10 mg of dornase via chest tube -continue vancomycin and meropenem, dornase and tPA injections 10 mg and 15 mg respectively b.i.d x 3 days, supplemental oxygen, now sinus and rate controlled on po diltiazem Code status: DNR Sepsis Screening Reassessment Date: Nov 16, 2024 Date of Service: Nov 16, 2024 Billing Provider: ASHLEY JANE MD Common Visit Codes: [id number] INP/OBS CARE(HIGH) ASHLEY JANE MD Nov 16, 2024 17:57
--- NOTE | 2024-11-16 19:18 | PROGRESS NOTE ---
Subjective Subjective Patient is seen today. Lying in bed awake alert and conversant and in no distress but hypoxic, with overall improvement of oxygenation and CAT scan of the chest findings. Reason for visit: Pulmonary critical care consultation Reviewed: Care Plan, H&P, Labs, Radiology Daily Progress Note Exam Vitals Vital Signs Date Time Temp Pulse Resp B/P (MAP) Pulse Ox O2 Delivery O2 Flow Rate FiO2 11/16/24 16:07 74 18 High Flow Salter 6.0 11/16/24 16:00 98 48 11/16/24 15:00 97.3 106/64 (78) Result Diagram: 11/16/24 0532 11/16/24 0532 Exam General: Frail looking with sunken temples and absent fat pads in the supraclavicular areas HEENT examination: Non-rebreather mask on, N/C/AT, PERRLA, EOMI Neck: Supple with no jugular venous distention no lymphadenopathy. Chest: Symmetric expansion bilaterally Pulmonary: Diminished breath sounds right side with diminished vocal fremitus. Abdomen: Soft nontender Extremities: Nondistended with normoactive bowel sounds soft nontender no organomegaly. Skin: Right chest tube in Situ still draining serosanguineous fluid. Results Coagulation Studies Laboratory Tests Test 11/11/24 04:33 Prothrombin Time 11.4 SECONDS (9.0-12.0) INR International Normalized Ratio 1.1 INR Activated Partial Thromboplast Time 40 SECONDS (22-32) H Coagulation Comments VTE VTE Risk Score VTE Risk Score Reference Ranges: Score 0-1 = Low Risk (Aggressive mobilization; early ambulation; no VTE prophylaxis required) Score 2: Moderate Risk (Intermittent/Pneumatic Compression Device OR Lovenox/Heparin/Coumadin) Score 3-4: High Risk (Intermittent/Pneumatic Compression Device AND Lovenox/Heparin/Coumadin) Score > or = 5: Highest Risk (Intermittent/Pneumatic Compression Device AND Lovenox/Heparin/Coumadin) Assessment/Plan Plan Acute respiratory failure:Severely hypoxemic, but with further improvement compared to yesterday i.e. FiO2 down from 80% to 60% on high-flow nasal cannula oxygen. most likely due to nonfunctioning right lung caused by atelectasis/consolidation and possibly COPD. Pulse oximeter reading is 93-97% on 60% FiO2 on high-flow nasal cannula at 40 L/min. Suspected right chest empyema caused by community-acquired pneumonia: PH less than 6.76 and glucose of 0 on pleural fluid analysis highly suggestive of empyema. Patient is status post right chest tube thoracostomy and the patient's PH is less than 6.670 highly suggestive of empyema. Also an LDH of 1089 easily is suggestive of empyema. Rest of pleural fluid analysis suggestive of complicated pleural effusion. Cell cytology remarkable for malignancy. Completed treatment with 15 mg of tPA and 10 mg of dornase via chest tube. For right loculated pleural effusion and still has a residual right anteroapical loculated pleural effusion. Trapped lung ? : Patient does not have a trapped lung according to serial CAT scans performed on this patient. Patient's right lung is now back up at least 95 % . Patient not a candidate for chemotherapy Saritha radiation therapy if diagnosed with lung cancer. The diagnosis of lung cancer therefore we will be inconsequential. Patient and his family (son and daughter coming out of [facility]) do not want surgery. I talked to patient in the presence of his son and daughter on 11/14/2024. I concur with this decision because this is a frail looking patient who is malnourished and probably high-risk candidate for surgery with no clear benefit of the proposed surgery of right lung decortication. I made this abundantly clear to the consulting thoracic surgeon on various occasions that the patient and his family do not want surgery and that the surgery is of questionable benefit if any at all. Making a diagnosis of lung cancer without any consequences of treatment options does not make sense. He may benefit from a PleurX catheter if he continues to have significant daily pleural fluid fluid drainage. Community-acquired pneumonia: CAT scan done on 11/14/2024 reveals some endobronchial Atrial fibrillation COPD Nicotine addiction. Malnutrition Plan: Continue clindamycin and ceftriaxone. Completed three days of chest tube treatment with Dornase and tPA injections at a dose of 10 mg and 15 mg respectively . He is left with two treatments today. Continue chest tube to low continuous suctioning. Continue bronchodilator therapy, Mucomyst and chest physical therapy. Use Acapella valve. Continue high-flow oxygen to maintain an oxygen saturation level of at least 88%. Continue bronchodilator therapy with DuoNebs q.4 hours. Patient and family do not want to have surgery nor bronchoscopy. This message use reiterated today when I made the patient is son and daughter in the patient's room late this afternoon. Surgery is of questionable benefit in this patient since the diagnosis of lung cancer we will not lead to any treatment options given his physical status. His right lung is already 95 % up with the current conservative treatment with tPA and dornase. Code status: DNR Sedation and analgesia: Currently on morphine 4 mg IV q.4 hours p.r.n. Nutrition: Encourage p.o. diet Prophylaxis: Lovenox 40 mg subcutaneously q.day Social: I had a peer to peer discussion with the patient's health insurance physician. GreenLight has been given for him to go to the LTAC care Overall prognosis: Guarded Critical care time in excess of 35 minutes. Disposition retaining Expected Outcome/Goals Expected Outcomes/Goals: weight gain/no further wt loss, meet at least 75% of estimated nutrient needs, ONS acceptance, bowel regularity, wound healing MAT FAROOQ MD Nov 16, 2024 19:18
[2024-11-17] VITALS (10 sets, daily range): BP systolic 128–138; BP diastolic 61–71; PULSE 76–90; RESP 17–22; TEMP 97.4–98; O2SAT 88–98
[2024-11-17 06:24] LABS: MEAN PLATELET VOLUME 8.6 FL (7.4-10.4); RED CELL DISTRIBUTION WIDTH 17.9 % (11.5-14.5)
[2024-11-17 07:22] LABS: CREATININE 0.39 MG/DL (0.60-1.10); PHOSPHORUS 3.0 MG/DL (2.3-4.5); TOTAL CARBON DIOXIDE 31.3 MMOL/L (24-32); eCRCL 126 ML/MIN; eGFR > 90 ML/MIN
--- NOTE | 2024-11-17 07:26 | RADIOLOGY REPORT ---
CHEST RADIOGRAPH Indication: chest tube Technique: DI CHEST,SINGLE VIEW Comparison: 11/16/2024 FINDINGS: The cardiac silhouette is enlarged. The lungs demonstrate diffuse bilateral patchy airspace opacities most pronounced within the right mid to lower lung, increased from prior. Right chest pigtail catheter projecting over the right lower lung. The pulmonary vasculature is prominent, increased from previous examination. Moderate right and small left pleural effusions, increased on the right. There is no pneumothorax. IMPRESSION: As above
--- NOTE | 2024-11-17 17:22 | DISCHARGE SUMMARY ---
Discharge Summary Providers to No new complaint today ready to be transferred to rehab on facility ~ Discharge Summary Assessment Community-acquired pneumonia mixed jacey Gram-positive Gram-negative A right side of the chest Empyema Status post right hemithorax chest tube placement and drainage Sepsis 2/2 above Acute hypoxic respiratory failure 2/2 above Atrial fibrillation, RVR 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 Nicotine dependence Malnutrition, severe Admission Diagnosis: Acute Respiratory Failure Admission Diagnosis Comment: Community-acquired pneumonia mixed jacey Gram-positive Gram-negative A right side of the chest Empyema Status post right hemithorax chest tube placement and drainage Sepsis 2/2 above Acute hypoxic respiratory failure 2/2 above Atrial fibrillation, RVR 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 Nicotine dependence Malnutrition, severe Hospital Course DATE OF ADMISSION: November 12, 2024 DATE OF DISCHARGE: November 17, 2024 Discharge Diagnosis\Comment: Community-acquired pneumonia mixed jacey Gram-positive Gram-negative A right side of the chest Empyema Status post right hemithorax chest tube placement and drainage Sepsis 2/2 above Acute hypoxic respiratory failure 2/2 above Atrial fibrillation, RVR 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 He lives in [place] and states that he developed acute onset right-sided pleuritic chest pain. He suffered with this pain for about a day and had a friend take him to [facility] in [place]. I believe he was at that hospital for a period of time and was then sent here for a higher level of care. I believe the physicians at [facility] had spoken to Dr. Gonzáles. He was found to have complete opacification of the right hemithorax. I believe he was admitted to the ICU overnight by one of the nighttime intensivists this past weekend. He was placed on meropenem and vancomycin. He then had a chest tube placed by Dr. Montalvo. Dr. Gonzáles was consulting at that point. He was receiving TPA and Dornase through the chest tube. It is unclear to me how many treatments he has received at this point. He has had quite a bit of output from his chest tube. Based on the nursing notes, he has had about 2.5 L out. He did have a CT scan done early yesterday morning and another CT scan is planned for tomorrow morning. Two of his 4 children are currently at the bedside. There has been some discussion about surgical treatment and the patient would prefer to avoid that type of treatment if necessary, but he did not seem completely opposed when I spoke with him. He apparently lost his a couple of years ago to lung cancer and he certainly does not want to go through a long period of suffering. That said he is still open to most treatment options. With regard to the tempo of his illness, it seems as if he was performing his usual activities up until his acute onset of right-sided chest pain. At one point, he hinted that he may have slowed down a little bit in the past week or two but he states that he was certainly his normal active self over the summer. He still does quite a bit of work around his place in [place], and he does live alone. After admission patient was extensively evaluated and treated, today he has no new complaint, ready to be discharged to rehab facility, medication reconciled, follow-up PCP in the morning, return to emergency department if condition worsens, today on physical exam Vital signs, stable ,afebrile. Pulse Oximetry reflects adequate oxygenation. General: well developed, well nourished. Awake , alert, and oriented x4, resting comfortably in the bed, in no acute distress . Skin: Warm, dry, no pallor, no rash or petechiae. HEENT: Atraumatic, normocephalic, EOMI, anicteric sclera B; pink conjunctiva; PERRLA, normal oropharynx, moist oral and nasal mucosa. Tympanic membrane , nose , throat clear. Neck: Trachea midline. Supple, full range of motion, no JVD, bruit , hepatojugular reflex , lymphadenopathy or masses, or other lesions Cardiac: Regular rhythm, regular rate no murmurs, rubs, or gallops. Normal S1 and S2, no S3 noticed. PMI is normal. Respiratory: Equal breath sounds bilaterally, no tachypnea; lungs clear to auscultation bilaterally, no wheezing ,rub or rales, or crackles. Chest wall is symmetric and without deformity. No signs of trauma. Chest wall is nontender. No signs of respiratory distress. Resonance is normal upon percussion bilaterally. Chest tube functional, Gastrointestinal: Abdomen symmetric, non-distended, soft, non-tender, normal bowel sounds x4 quadrant, normoactive, no hepatosplenomegaly , no masses , no bruit, no flank pain bilaterally. No voluntary guarding, rebound, or rigidity. No tenderness to percussion. No pulsatile masses. Equal femoral pulses. No Sood's sign or McBurney point tenderness. Back; no CVA tenderness bilaterally, no deformities. Neck and back are without deformity as well. No tenderness noted on palpation of the spinous processes. Spinous processes are midline. Cervical, thoracic, and lumbar paraspinal muscles are not tender and are without spasm. : normal external genitalia, without lesions, swelling, masses or tenderness. Musculoskeletal: Extremities, normal range of motion, non-tender, muscle strength 5/5 x 4. Negative Homans signs bilaterally on lower extremity. Distal pulses full symmetrical, no clubbing, cyanosis , edema. Neurological: Speech is clear, alert, and oriented x 4. No motor or sensory deficit, deep tendon reflexes normal, cerebellar intact. Cranial nerves II-XII intact. Psych: Alert and or appropriate, normal affect. Vascular: Good distal pulses, which are equal x4; capillary refill less than 2 seconds. Lymphatic, no lymphadenopathy. *Problems/Diagnosis: (1) Atrial fibrillation Total Time Spent on D/C: > 30 Minutes Date of Service: Nov 17, 2024 Billing Provider: ASHLEY JANE MD Common Visit Codes: 45773-JXO/OBS DISCH DAY >30min Problem Qualifiers (1) Atrial fibrillation: Qualified Codes: I48.0 - Paroxysmal atrial fibrillation ASHLEY JANE MD Nov 17, 2024 17:22
== END 2024-11-17 15:26 | DRG 871 ==
LOC: CICU 2S 11-11 00:05 → PCU 3S 11-14 17:59
PROVIDERS: ADMIT Surgery; ATTEND Surgery
PROC: 0W9930Z Drainage of Right Pleural Cavity with Drainage Device, Percutaneous Approach (ICD-10-PCS; 2024-11-11)
PROC: 5A0945A Assistance with Respiratory Ventilation, 24-96 Consecutive Hours, High Flow/Velocity Cannula (ICD-10-PCS; 2024-11-11)
PROC: 5A09357 Assistance with Respiratory Ventilation, Less than 24 Consecutive Hours, Continuous Positive Airway Pressure (ICD-10-PCS; 2024-11-11)
PROC: 3E0L317 Introduction of Other Thrombolytic into Pleural Cavity, Percutaneous Approach (ICD-10-PCS; principal; 2024-11-12)
PROC: 3E0L3GC Introduction of Other Therapeutic Substance into Pleural Cavity, Percutaneous Approach (ICD-10-PCS; 2024-11-12)
PROC: BW241ZZ Computerized Tomography (CT Scan) of Chest and Abdomen using Low Osmolar Contrast (ICD-10-PCS; 2024-11-12)
PROC: 5A0935A Assistance with Respiratory Ventilation, Less than 24 Consecutive Hours, High Flow/Velocity Cannula (ICD-10-PCS; 2024-11-14)
PROC: 5A0935A Assistance with Respiratory Ventilation, Less than 24 Consecutive Hours, High Flow/Velocity Cannula (ICD-10-PCS; 2024-11-15)
PROC: 5A0935A Assistance with Respiratory Ventilation, Less than 24 Consecutive Hours, High Flow/Velocity Cannula (ICD-10-PCS; 2024-11-16)
PROC: 5A0935A Assistance with Respiratory Ventilation, Less than 24 Consecutive Hours, High Flow/Velocity Cannula (ICD-10-PCS; 2024-11-17)
DX: A41.9 Sepsis, unspecified organism (principal); E43 Unspecified severe protein-calorie malnutrition; J86.9 Pyothorax without fistula; J96.01 Acute respiratory failure with hypoxia; J15.69 Pneumonia due to other Gram-negative bacteria; J15.9 Unspecified bacterial pneumonia; J90 Pleural effusion, not elsewhere classified; J98.11 Atelectasis; J44.1 Chronic obstructive pulmonary disease with (acute) exacerbation; R64 Cachexia; Z68.1 Body mass index [BMI] 19.9 or less, adult; J44.0 Chronic obstructive pulmonary disease with (acute) lower respiratory infection; Z66 Do not resuscitate; F17.200 Nicotine dependence, unspecified, uncomplicated; I48.0 Paroxysmal atrial fibrillation
CPT/HCPCS: 32556; 36415; 36600; 71045; 71250; 71260; 80053; 80202; 81001; 82803; 82945; 82948; 83605; 83615; 83735; 83986; 84100; 84132; 84145; 84157; 84443; 84484; 85008; 85018; 85025; 85610; 85730; 86885; 86900; 86901; 87040; 87070; 87081; 87088; 88108; 88305; 89051; 92508; 93005; 93308; 94640; 94660; 94668; 94760; 97110; 97161; 97530; 97535; 99285; A4615; A6213; A6250; A6258; A6449; C1729; C1769; G0378; J0696; J1650; J2003; J2185; J2270; J2997; J3373; J3375; J3490; J7040; J7060; Q9967